=== PATIENT | female | born 1995 | race Caucasian/White ===

== ENCOUNTER → 2019-11-23 13:07 | Outpatient (BNVA) | payer MEDICARE, MEDICAID, SELFPAY | PROVIDERS: PCP Internal Medicine; Visit Provider Hospitalist | DX: J45.50 Severe persistent asthma, uncomplicated (principal); G70.9 Myoneural disorder, unspecified; J30.9 Allergic rhinitis, unspecified; J40 Bronchitis, not specified as acute or chronic; Z79.899 Other long term (current) drug therapy | CPT/HCPCS: 99214 ==

== ENCOUNTER → 2020-03-21 12:39 | Outpatient (BNVA) | payer MEDICARE, MEDICAID, SELFPAY | PROVIDERS: PCP Internal Medicine; Visit Provider Hospitalist | DX: J45.909 Unspecified asthma, uncomplicated (principal); J45.50 Severe persistent asthma, uncomplicated | CPT/HCPCS: 99212 ==

== ENCOUNTER → 2020-06-21 12:53 | Outpatient (BNVA) | payer MEDICARE, MEDICAID, SELFPAY | PROVIDERS: PCP Internal Medicine; Visit Provider Hospitalist | DX: J30.9 Allergic rhinitis, unspecified (principal); G70.9 Myoneural disorder, unspecified; J45.50 Severe persistent asthma, uncomplicated | CPT/HCPCS: 99212 ==

== ENCOUNTER → 2020-11-18 15:01 | Outpatient (BNVA) | payer MEDICARE, MEDICAID, SELFPAY | PROVIDERS: PCP Internal Medicine; Visit Provider Hospitalist | DX: J30.9 Allergic rhinitis, unspecified (principal); J45.50 Severe persistent asthma, uncomplicated; G70.9 Myoneural disorder, unspecified; J96.00 Acute respiratory failure, unspecified whether with hypoxia or hypercapnia | CPT/HCPCS: 99212 ==

== ENCOUNTER 2020-11-27 10:38 | Outpatient (REF) | payer MEDICARE, MEDICAID, SELFPAY ==
[2020-11-27 11:07] LABS: MANUAL DIFF FLAG NO
[2020-11-27 11:09] LABS: ABG Refer to POC result
[2020-11-27 11:58] LABS: Eosinophils Absolute Auto 0.3 X10*3/uL (0.0-0.4); Eosinophils Percent Auto 4.5 % (0-4); Hematocrit 29.1 % (37-47); Hemoglobin 9.8 g/dl (12.0-16.0); Imm Gran Abs Auto 0.03 X10*3/uL (0.00-0.03); Imm Gran Pct Auto 0.5 % (0.0-0.4); Lymphocytes Absolute Auto 0.9 X10*3/uL (1.2-4.9); Lymphocytes Percent Auto 14.8 % (20-40); Mean Corpuscular HGB Conc 33.7 g/dl (31.0-35.0); Mean Corpuscular Hemoglobin 28.5 pg (27.0-33.0); Mean Corpuscular Volume 84.6 fL (80-98); Monocytes Absolute Auto 0.4 X10*3/uL (0.1-1.2); Monocytes Percent Auto 6.1 % (2-11); Neutrophils Absolute Auto 4.4 X10*3/uL (2.0-8.3); Neutrophils Percent Auto 74.1 % (45-73); Platelet Count 176 X10*3/uL (160-400); Red Blood Count 3.44 X10*6/uL (4.20-5.50); Red Cell Distribution Width 13.9 % (11.0-16.0); White Blood Count 5.9 X10*3/uL (4.8-10.8)
[2020-11-27 12:19] LABS: Anion Gap 12 (12-20); Blood Urea Nitrogen 5 mg/dL (9-16); Calcium 8.8 mg/dL (8.4-10.2); Carbon Dioxide 23 mmol/L (22-29); Chloride 107 mmol/L (96-108); Estimated Glomerular Filt Rate > 60; Glucose Random 81 mg/dL (60-115); Potassium 3.5 mmol/L (3.3-5.1); Sodium 138 mmol/L (135-145)
[2020-11-27 12:25] LABS: D Dimer < 200 NG/ML
[2020-11-27 12:37] LABS: Erythrocyte Sedimentation Rate 28 MM/HR (0-20)
[2020-11-28 07:56] LABS: ABG pCO2 29 mmHg (32-45); ABG pO2 125 mmHg (83-108)
[2020-11-28 07:57] LABS: ABG Base Excess -1.2 mmol/L; ABG HCO3 21 mmol/L (22-26); ABG pH 7.46 (7.35-7.45)
[2020-11-29 23:57] LABS: Anti Nuclear Antibody Pattern Nuclear, Homogeneous; Anti Nuclear Antibody Screen POSITIVE (NEGATIVE); Anti Nuclear Antibody Titer 1:40 titer
== END 2020-11-27 10:39 | disposition home or self-care (01) ==
LOC: HO.LAB 10:38
PROVIDERS: PCP Internal Medicine; Visit Provider Hospitalist
DX: G70.9 Myoneural disorder, unspecified (principal); J96.00 Acute respiratory failure, unspecified whether with hypoxia or hypercapnia; J45.50 Severe persistent asthma, uncomplicated
CPT/HCPCS: 36415; 80048; 82785; 82803; 85025; 85379; 85652; 86003; 86038; 86039

== ENCOUNTER → 2021-01-03 13:06 | Outpatient (BNVA) | payer MEDICAID, SELFPAY | PROVIDERS: PCP Internal Medicine; Visit Provider Hospitalist | DX: J45.50 Severe persistent asthma, uncomplicated (principal); J96.00 Acute respiratory failure, unspecified whether with hypoxia or hypercapnia; G71.09 Other specified muscular dystrophies | CPT/HCPCS: 99212 ==

== ENCOUNTER → 2021-04-08 14:47 | Outpatient (BNVA) | payer MEDICAID, SELFPAY | PROVIDERS: PCP Internal Medicine; Visit Provider Hospitalist | DX: J45.50 Severe persistent asthma, uncomplicated (principal); J30.9 Allergic rhinitis, unspecified; G70.9 Myoneural disorder, unspecified; Z79.899 Other long term (current) drug therapy | CPT/HCPCS: 99212 ==

== ENCOUNTER → 2021-11-24 10:39 | Outpatient (BNVA) | payer MEDICARE, MEDICAID, SELFPAY | PROVIDERS: PCP Internal Medicine; Visit Provider Hospitalist | DX: O99.512 Diseases of the respiratory system complicating pregnancy, second trimester (principal); J45.50 Severe persistent asthma, uncomplicated; J30.9 Allergic rhinitis, unspecified; O99.352 Diseases of the nervous system complicating pregnancy, second trimester; G70.9 Myoneural disorder, unspecified; Z3A.14 14 weeks gestation of pregnancy; Z79.899 Other long term (current) drug therapy | CPT/HCPCS: 94618; 99212 ==

== ENCOUNTER → 2022-01-12 10:47 | Outpatient (BNVA) | payer MEDICARE, MEDICAID, SELFPAY | PROVIDERS: PCP Internal Medicine; Visit Provider Hospitalist | DX: G70.9 Myoneural disorder, unspecified (principal); J30.9 Allergic rhinitis, unspecified; J45.50 Severe persistent asthma, uncomplicated | CPT/HCPCS: 99212 ==

== ENCOUNTER → 2022-03-31 10:58 | Outpatient (BNVA) | payer MEDICARE, MEDICAID, SELFPAY | PROVIDERS: PCP Internal Medicine; Visit Provider Hospitalist | DX: O99.513 Diseases of the respiratory system complicating pregnancy, third trimester (principal); J45.51 Severe persistent asthma with (acute) exacerbation; J40 Bronchitis, not specified as acute or chronic; J30.9 Allergic rhinitis, unspecified; O99.353 Diseases of the nervous system complicating pregnancy, third trimester; G70.9 Myoneural disorder, unspecified; Z3A.32 32 weeks gestation of pregnancy; Z79.899 Other long term (current) drug therapy | CPT/HCPCS: 99212 ==

== ENCOUNTER 2023-03-24 10:00 | Outpatient (AMB) | payer MEDICARE, MEDICAID, SELFPAY ==
--- NOTE | 2023-03-24 10:10 | MHC.OFFVIS ---
Intake Vital Signs 03/24/23 10:11 Height 4 ft 11 in Weight 129 lb 13.636 oz BMI 26.2 Pulse 89 Pulse Source Pulse Oximeter Pulse Oximetry (%) 99 Oxygen Delivery Method Room Air Intake Visit Reasons: asthma Sand [employer] Core Sand Required: No Allergies Morphine Allergy (Severe, Uncoded 03/24/23 10:12) Anaphylaxis Oxycodone Allergy (Severe, Uncoded 03/24/23 10:12) Anaphylaxis PERCOCET Allergy (Severe, Uncoded 03/24/23 10:12) Anaphylaxis Silk Tape Allergy (Severe, Uncoded 03/24/23 10:12) Anaphylaxis Sulfa Drugs Allergy (Severe, Uncoded 03/24/23 10:12) Anaphylaxis Toradol Allergy (Severe, Uncoded 03/24/23 10:12) Anaphylaxis HPI HPI Comments History of Present Illness Details the patient is a 27-year-old woman with known severe persistent asthma, chronic allergic rhinitis and mitochondrial muscular dystrophy. recently she did undergo surgery for her Charcot foot. still having significant discomfort. She did start having worsening cough with productive sputum, greenish in color. She did have some chest discomfort along with it. She denies fevers. Resulting in worsening wheezing. She has been using her flutter valve for exploration of mucus, but, having hard time expectorating. therefore, we had her perform pulmonary function studies her forced vital capacity still within normal limits although her Flovent in demonstrating a significant obstruction during the expiratory phase suggesting a dynamic intrathoracic obstruction. This time she has failed the flutter valve and I will request for a percussion vest. She is going to continue with respiratory therapy in a 2nd course of antibiotics will be sent. I will send her also for chest x-ray prior to the next visit. 11/18/2020 the patient is here for a pulmonary follow-up visit. Apparently the patient is now completing her 2nd trimester of . She does follow up in [place] for her obstetrics therapy due to her muscular dystrophy. The patient has been complaining of increasing dyspnea on exertion. Moderate severity. Also feeling very tired. She had to stop out of her respiratory medications and she feels that is likely related to that. During the visit we had her complete a 6 minutes walk test. She did quickly desaturated down to 86% on room air. She was then placed on 2 L and she improved her oxygen to 100%. So we were able to decrease her down to 1 L maintains a saturation 96% with activity. Explained to her that she needs to keep her pulse ox above 95%. Explained to the patient that with her increase in her abdominal girth pressing on her diaphragms it is hard for her to expand her lungs fully. The patient denies any chest pains or palpitations. She denies any the calf discomfort. Although, she has had some mild lower extremity swelling. Will set up the patient on oxygen. She does have a follow up in [place] next week. I will have her undergo blood work prior to that visit so she can take the results with her. It is likely that the hypoxia has to do more with hypo expansion of her lungs due to her . She denies any significant acute symptoms to suggest other alternatives. That being said it is reasonable for her to discuss with her team in [place] see if any additional testing is warranted after undergoing blood work. 01/03/2021 the patient is here for a pulmonary follow-up visit. Patient is 28 weeks gestation. She denies any significant shortness of breath or cough. She does have the oxygen with her. We did take her off the oxygen and did phone a 6 minutes walk test after 5 minutes of being off the oxygen. The patient maintain a pulse ox of 98% throughout the ambulation. Heart rate did increase to about 130 but overall better than before. I have reassured the patient. we also reviewed her blood work including ABG, D-dimer all were reassuring. No evidence of any a-A gradients. She does have a mild anemia. She will follow-up with her OB team soon. the patient will be starting the singular soon. She was not able to get the budesonide. However, with respiratory status staying stable will hold off on starting the budesonide at this time. If however her symptoms worsen she will call the office so we can send her prescription for it. 04/08/2021 the patient is here for pulmonary follow-up visit. She recently had a beautiful baby girl. She did not have any respiratory complaints during the the liver process. However she did have issues with her blood pressure significant lower extremity edema. She is now better from that. Both in the meantime she has not been using the oxygen. We did go for brief walking oximetry in the patient did not desaturate and therefore no longer needs the oxygen. I will submit an order to discontinue the oxygen from her home. She has been using her respiratory medications. Has not had to use any prednisone which is reassuring. She has not had to use her nebulizer either. Otherwise patient is without any other complaints. 11/24/2021 the patient is here for a pulmonary follow-up visit. recently she found out she was again. She currently at 14 weeks gestation. During her last she did have issues with elevations in her blood pressure suggesting some degree of preeclampsia. Now she is taking a baby aspirin they are monitoring closely. The patient has been on the Symbicort and also Spiriva. She also continues on Zyrtec. He has been having More allergy symptoms. She has been using p.r.n. Benadryl. the patient also complains of dyspnea on exertion. During her last she was on oxygen to maintain a pulse ox above 95%. This time we did do a brief walking oximetry in although heart rate had been elevated to the 120s the patient maintain an adequate oxygenation. I did recommend the patient to get her own pulse oximeter to measure her oxygen also her heart rate. Otherwise the patient is without any other complaints. 01/12/2022 the patient is here for a pulmonary follow-up visit. The patient currently is 18 weeks gestation. She did follow-up with her OBGYN. She does have some evidence of preeclampsia and she was started on labetalol. She continues to take the baby aspirin. Denies any significant shortness of breath. She has been using the Symbicort and Spiriva. They have been affecting beneficial. She having issues with significant nasal congestion. The nasal sprays have not been helpful. She is rinsing with the Neti bottle. Without budesonide x2 weeks to try to help her with her symptoms. During the office visit we did go for brief walking oximetry. Her pulse ox was actually of better around 98-100%. Heart rate continues to be elevated in the 120s. Her dyspnea score was 4/10. 03/31/2022 the patient is here for pulmonary follow-up visit. She is now 32 weeks gestation. Her is going well. She does feel tired. Her blood pressure is better. She still tachycardic when she walks around. She continues on the Symbicort and Spiriva. The patient was exposed to sick contacts. Her daughter developed likely a viral examthem. Now she is developing nasal congestion and productive cough. On examination she does have some expiratory wheezing. At this point is minimal. She will start taking a Z-Fran if the patient is no better if she worsens she can always start some prednisone. During the office visit we did go for brief walking oximetry. Her oxygen significantly better between 98 to 99%. However, heart rate did increase to about 130 with minimal activity. The heart rate does go back to normal when she is resting. She continues on the baby aspirin she is tolerating that well. At this point she is has a plan induction for around 38 weeks gestation. 03/24/2023 the patient is here for a pulmonary follow-up visit. She has been busy with her 2 daughters. The patient has been using her respiratory therapy with partial resolution of symptoms. Unfortunately her Symbicort no longer cover. She has had a tough couple months where she has been developing worsening respiratory complaints upper respiratory illness bronchitis asthma exacerbations in part due to sick contacts without her daughters and other family members. Seems like she does not have any time to recover. She does have some increased chest congestion. She has developing a productive yellow phlegm. Will go ahead and treat her for bronchitis. She does not have any significant wheezing therefore does not need to use prednisone right now. However, if her symptoms worsen I will send some prednisone for her to take. Seems to be dealing well with her muscular dystrophy. She is however losing weight. Can not seem to wait. She is being evaluated for that as well. [facility] Medical History (Updated 03/31/22 @ 22:25 by Guillermo Chand MD) Acute respiratory failure Chronic respiratory failure Chronic allergic rhinitis Neuromuscular disorder Asthma Social History (Updated 11/18/20 @ 15:21 by Lucy Bird Alexus) Patient Tobacco Use Status: Never used Tobacco Review of Systems Const Denies night sweats Eyes Denies itchy eyes ENT Denies change in voice, Denies mouth pain, Reports nasal congestion, Reports nasal discharge, Reports nasal obstruction and Denies tongue swelling Card Denies chest pain, Reports palpitations, Denies dyspnea and Reports dyspnea on exertion Resp Reports chest congestion, Reports cough, Denies dyspnea, Reports dyspnea on exertion and Reports wheezing GI Denies abdominal pain Musc Reports abnormal gait, Reports atrophy, Reports deformity and Reports arthralgias Neuro Reports abnormal gait Psych Denies no additional complaints Endo Reports palpitations Anthony/Lymph Denies easy bleeding and Denies lymphadenopathy Aller/Immun Reports urticaria, Denies itchy eyes, Reports seasonal rhinorrhea, Denies tongue swelling and Reports wheezing Physical Exam Vital Signs: Last Vital Signs Pulse 89 03/24/23 10:11 Pulse Ox 99 03/24/23 10:11 Oxygen Delivery Method Room Air 03/24/23 10:11 BMI result Body Mass Index 26.2 Const General: alert Neck Neck: Yes normal visual inspection, Yes full ROM and Yes no lymphadenopathy Chest Chest palpation & inspection: normal inspection of the chest Resp Auscultation: no rales, no rhonchi, no wheezes and diminished lung sounds Cardio Rate: tachycardic Rhythm: regular rhythm Heart sounds: S1 normal heart sound present and S2 normal heart sound present GI Auscultation: normal bowel sounds Skin General skin exam: rashes and/or lesions noted Assessment & Plan Assessment & Plan (1) Bronchitis: Code(s): J40 - Bronchitis, not specified as acute or chronic Plan: Likely viral syndrome (2) Chronic allergic rhinitis: Code(s): J30.9 - Allergic rhinitis, unspecified (3) Neuromuscular disorder: Comment: Code(s): G70.9 - Myoneural disorder, unspecified (4) Asthma: Code(s): J45.909 - Unspecified asthma, uncomplicated Qualifiers: Asthma severity: severe Asthma persistence: persistent Asthma complication type: with acute exacerbation Qualified Code(s): J45.51 - Severe persistent asthma with (acute) exacerbation Plan Start Augmentin Prednisone if no better CXR if no better continue Zyrtec stopped Symbicort due to insurance start Dulera BID continue Spiriva continue neti bottle nasal rinsing KYREE as needed F/U 3-4 months Orders: Orders XR chest 2V Today J40 - Bronchitis, not specified as acute or chronic Medications: New mometasone-formoterol 200-5 mcg/actuation (Dulera) 2 puffs inhalation Q12H 30 days 13 grams 11RF tiotropium bromide 2.5 mcg/actuation (Spiriva Respimat) 2 puffs inhalation DAILY 30 days 1 ea 11RF prednisone PO daily; Take 2 tabs daily x 5 days, then 1 tablet daily x 5 days 10 days 15 tabs 0RF amoxicillin-pot clavulanate 875-125 mg 1 tab PO BID 10 days 20 tabs 0RF Refilled albuterol sulfate 2.5 mg (3 mL) inhalation Q6H 30 days PRN 180 mL 11RF shortness of breath or wheezing Coding Level of Care Code Est Pt Level 4 (70930) Diagnoses Bronchitis J40 Chronic allergic rhinitis J30.9 Neuromuscular disorder G70.9 Severe persistent asthma with acute exacerbation J45.51 Asthma severity: severe Asthma persistence: persistent Asthma complication type: with acute exacerbation Time Spent (min) 17
[2023-03-24 10:11] VITALS: PULSE 89; O2SAT 99; BMI 26.2
== END 2023-03-24 10:34 | disposition home or self-care (01) ==
PROVIDERS: PCP Internal Medicine; Visit Provider Hospitalist
DX: J40 Bronchitis, not specified as acute or chronic (principal); J30.9 Allergic rhinitis, unspecified; G70.9 Myoneural disorder, unspecified; J45.51 Severe persistent asthma with (acute) exacerbation
CPT/HCPCS: 99214

== ENCOUNTER → 2023-03-24 10:00 | Outpatient (BNVA) | payer MEDICARE, MEDICAID, SELFPAY | PROVIDERS: PCP Internal Medicine; Visit Provider Hospitalist | DX: J45.51 Severe persistent asthma with (acute) exacerbation (principal); J40 Bronchitis, not specified as acute or chronic; J30.9 Allergic rhinitis, unspecified; G70.9 Myoneural disorder, unspecified; Z79.899 Other long term (current) drug therapy | CPT/HCPCS: 99212 ==

== ENCOUNTER 2024-03-14 15:17 | Outpatient (AMB) | payer MEDICARE, MEDICAID, SELFPAY ==
[2024-03-14 15:44] VITALS: BP 108/70; PULSE 74; O2SAT 99; BMI 21.6
--- NOTE | 2024-03-14 15:44 | A.OFFVIS_ITS ---
Vital Signs 03/14/24 15:44 Height 4 ft 11 in Weight 106 lb 14.787 oz BMI 21.6 BP 108/70 Blood Pressure Location Rt brachial Position Sitting Pulse 74 Pulse Source Pulse Oximeter Pulse Oximetry (%) 99 Oxygen Delivery Method Room Air Intake Visit Reasons: Asthma Allergies Latex, Natural Rubber Allergy (Mild, Verified 03/14/24 15:48) Hives Morphine Allergy (Severe, Uncoded 03/14/24 15:47) Anaphylaxis Oxycodone Allergy (Severe, Uncoded 03/14/24 15:47) Anaphylaxis PERCOCET Allergy (Severe, Uncoded 03/14/24 15:47) Anaphylaxis Silk Tape Allergy (Severe, Uncoded 03/14/24 15:47) Anaphylaxis Sulfa Drugs Allergy (Severe, Uncoded 03/14/24 15:47) Anaphylaxis Toradol Allergy (Severe, Uncoded 03/14/24 15:47) Anaphylaxis HPI Comments Details: the patient is a 28-year-old woman with known severe persistent asthma, chronic allergic rhinitis and mitochondrial muscular dystrophy. recently she did undergo surgery for her Charcot foot. still having significant discomfort. She did start having worsening cough with productive sputum, greenish in color. She did have some chest discomfort along with it. She denies fevers. Resulting in worsening wheezing. She has been using her flutter valve for exploration of mucus, but, having hard time expectorating. therefore, we had her perform pulmonary function studies her forced vital capacity still within normal limits although her Flovent in demonstrating a significant obstruction during the expiratory phase suggesting a dynamic intrathoracic obstruction. This time she has failed the flutter valve and I will request for a percussion vest. She is going to continue with respiratory therapy in a 2nd course of antibiotics will be sent. I will send her also for chest x-ray prior to the next visit. 11/18/2020 the patient is here for a pulmonary follow-up visit. Apparently the patient is now completing her 2nd trimester of . She does follow up in [place] for her obstetrics therapy due to her muscular dystrophy. The patient has been complaining of increasing dyspnea on exertion. Moderate severity. Also feeling very tired. She had to stop out of her respiratory medications and she feels that is likely related to that. During the visit we had her complete a 6 minutes walk test. She did quickly desaturated down to 86% on room air. She was then placed on 2 L and she improved her oxygen to 100%. So we were able to decrease her down to 1 L maintains a saturation 96% with activity. Explained to her that she needs to keep her pulse ox above 95%. Explained to the patient that with her increase in her abdominal girth pressing on her diaphragms it is hard for her to expand her lungs fully. The patient denies any chest pains or palpitations. She denies any the calf discomfort. Although, she has had some mild lower extremity swelling. Will set up the patient on oxygen. She does have a follow up in [place] next week. I will have her undergo blood work prior to that visit so she can take the results with her. It is likely that the hypoxia has to do more with hypo expansion of her lungs due to her . She denies any significant acute symptoms to suggest other alternatives. That being said it is reasonable for her to discuss with her team in [place] see if any additional testing is warranted after undergoing blood work. 01/03/2021 the patient is here for a pulmonary follow-up visit. Patient is 28 weeks gestation. She denies any significant shortness of breath or cough. She does have the oxygen with her. We did take her off the oxygen and did phone a 6 minutes walk test after 5 minutes of being off the oxygen. The patient maintain a pulse ox of 98% throughout the ambulation. Heart rate did increase to about 130 but overall better than before. I have reassured the patient. we also reviewed her blood work including ABG, D-dimer all were reassuring. No evidence of any a-A gradients. She does have a mild anemia. She will follow-up with her OB team soon. the patient will be starting the singular soon. She was not able to get the budesonide. However, with respiratory status staying stable will hold off on starting the budesonide at this time. If however her symptoms worsen she will call the office so we can send her prescription for it. 04/08/2021 the patient is here for pulmonary follow-up visit. She recently had a beautiful baby girl. She did not have any respiratory complaints during the the liver process. However she did have issues with her blood pressure significant lower extremity edema. She is now better from that. Both in the meantime she has not been using the oxygen. We did go for brief walking oximetry in the patient did not desaturate and therefore no longer needs the oxygen. I will submit an order to discontinue the oxygen from her home. She has been using her respiratory medications. Has not had to use any prednisone which is reassuring. She has not had to use her nebulizer either. Otherwise patient is without any other complaints. 11/24/2021 the patient is here for a pulmonary follow-up visit. recently she found out she was again. She currently at 14 weeks gestation. During her last she did have issues with elevations in her blood pressure suggesting some degree of preeclampsia. Now she is taking a baby aspirin they are monitoring closely. The patient has been on the Symbicort and also Spiriva. She also continues on Zyrtec. He has been having More allergy symptoms. She has been using p.r.n. Benadryl. the patient also complains of dyspnea on exertion. During her last she was on oxygen to maintain a pulse ox above 95%. This time we did do a brief walking oximetry in although heart rate had been elevated to the 120s the patient maintain an adequate oxygenation. I did recommend the patient to get her own pulse oximeter to measure her oxygen also her heart rate. Otherwise the patient is without any other complaints. 01/12/2022 the patient is here for a pulmonary follow-up visit. The patient currently is 18 weeks gestation. She did follow-up with her OBGYN. She does have some evidence of preeclampsia and she was started on labetalol. She continues to take the baby aspirin. Denies any significant shortness of breath. She has been using the Symbicort and Spiriva. They have been affecting beneficial. She having issues with significant nasal congestion. The nasal sprays have not been helpful. She is rinsing with the Neti bottle. Without budesonide x2 weeks to try to help her with her symptoms. During the office visit we did go for brief walking oximetry. Her pulse ox was actually of better around 98-100%. Heart rate continues to be elevated in the 120s. Her dyspnea score was 4/10. 03/31/2022 the patient is here for pulmonary follow-up visit. She is now 32 weeks gestation. Her is going well. She does feel tired. Her blood pressure is better. She still tachycardic when she walks around. She continues on the Symbicort and Spiriva. The patient was exposed to sick contacts. Her daughter developed likely a viral examthem. Now she is developing nasal congestion and productive cough. On examination she does have some expiratory wheezing. At this point is minimal. She will start taking a Z-Fran if the patient is no better if she worsens she can always start some prednisone. During the office visit we did go for brief walking oximetry. Her oxygen significantly better between 98 to 99%. However, heart rate did increase to ab out 130 with minimal activity. The heart rate does go back to normal when she is resting. She continues on the baby aspirin she is tolerating that well. At this point she is has a plan induction for around 38 weeks gestation. 03/24/2023 the patient is here for a pulmonary follow-up visit. She has been busy with her 2 daughters. The patient has been using her respiratory therapy with partial resolution of symptoms. Unfortunately her Symbicort no longer cover. She has had a tough couple months where she has been developing worsening respiratory complaints upper respiratory illness bronchitis asthma exacerbations in part due to sick contacts without her daughters and other family members. Seems like she does not have any time to recover. She does have some increased chest congestion. She has developing a productive yellow phlegm. Will go ahead and treat her for bronchitis. She does not have any significant wheezing therefore does not need to use prednisone right now. However, if her symptoms worsen I will send some prednisone for her to take. Seems to be dealing well with her muscular dystrophy. She is however losing weight. Can not seem to wait. She is being evaluated for that as well. 03/14/2024 the patient is here for a pulmonary follow-up visit. Overall she is doing okay. She had been sick now several weeks. An afterwards she felt like she can not expand her lungs well. She feels chest tightness. Sometimes she does expectorate specially at nighttime she wakes up short of breath with mucus. Appears to be mostly from the upper airway. May have a component of sinusitis with postnasal drip resulting in the difficulties. 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 The patient also has daytime drowsiness. Her [place] score is elevated 01/15. Will go ahead and request a sleep study at this time specially with her waking up short of breath. Will go ahead and treat her for an asthma exacerbation and sinusitis. When she comes back in a couple months will have her get some pulmonary function studies as well to assess her lung capacity. If she has any issues prior to that she will call for an earlier assessment. [facility] Medical History (Updated 03/14/24 @ 22:15 by Guillermo Chand MD) Acute respiratory failure Chronic respiratory failure Chronic allergic rhinitis Neuromuscular disorder Asthma Social History Patient Tobacco Use Status: Never used Tobacco Review of Systems Const Denies night sweats Eyes Denies itchy eyes ENT Denies change in voice, Denies mouth pain, Reports nasal congestion, Reports nasal discharge, Reports nasal obstruction and Denies tongue swelling Card Denies chest pain, Reports palpitations, Reports dyspnea and Reports dyspnea on exertion Resp Reports chest congestion, Reports cough, Reports dyspnea, Reports dyspnea on exertion and Reports wheezing GI Denies abdominal pain Musc Reports abnormal gait, Reports atrophy, Reports deformity and Reports arthralgias Neuro Reports abnormal gait Psych Denies no additional complaints Endo Reports palpitations Anthony/Lymph Denies easy bleeding and Denies lymphadenopathy Aller/Immun Reports urticaria, Denies itchy eyes, Reports seasonal rhinorrhea, Denies tongue swelling and Reports wheezing Physical Exam Vital Signs: Last Vital Signs Pulse 74 03/14/24 15:44 BP 108/70 03/14/24 15:44 Pulse Ox 99 03/14/24 15:44 Oxygen Delivery Method Room Air 03/14/24 15:44 BMI result Body Mass Index 21.6 Const General: alert Neck Neck: Yes normal visual inspection, Yes full ROM and Yes no lymphadenopathy Chest Chest palpation & inspection: normal inspection of the chest Resp Auscultation: no rales, no rhonchi, no wheezes and diminished lung sounds Cardio Rate: tachycardic Rhythm: regular rhythm Heart sounds: S1 normal heart sound present and S2 normal heart sound present GI Auscultation: normal bowel sounds Skin General skin exam: rashes and/or lesions noted Assessment & Plan Assessment & Plan (1) Chronic allergic rhinitis: Code(s): J30.9 - Allergic rhinitis, unspecified Category: Medical (2) Neuromuscular disorder: Comment: Code(s): G70.9 - Myoneural disorder, unspecified Category: Medical (3) Asthma: Code(s): J45.909 - Unspecified asthma, uncomplicated Category: Medical Qualifiers: Asthma severity: severe Asthma persistence: persistent Asthma c omplication type: with acute exacerbation Qualified Code(s): J45.51 - Severe persistent asthma with (acute) exacerbation (4) Sinusitis: Code(s): J32.9 - Chronic sinusitis, unspecified Category: Medical Qualifiers: Sinusitis location: unspecified location Chronicity: subacute Qualified Code(s): J01.90 - Acute sinusitis, unspecified Plan Start Doxycycline start Medrol pk PFTs continue Zyrtec stop Dulera BID start Breztri BID continue neti bottle nasal rinsing KYREE as needed PFTs with MIPs and MEPs F/U 3 months Orders: Orders PFT pulmonary function test Today G70.9 - Myoneural disorder, unspecified Medications: New [id number] 160-9-4.8 mcg/actuation (Breztri Aerosphere) 2 inhalations inhalation BID 10.7 grams 11RF doxycycline monohydrate 100 mg PO BID 14 days 28 tabs 0RF methylprednisolone (Medrol (Fran)) PO PER PKG DIR 6 days 21 ea 0RF Refilled epinephrine 0.15 mg (0.3 mL) IM ONCE PRN 2 ea 6RF for allergies albuterol sulfate 2.5 mg (3 mL) inhalation Q6H 30 days PRN 360 mL 11RF shortness of breath or wheezing J45.51 - Severe persistent asthma with (acute) exacerbation Coding Level of Care Code Est Pt Level 4 (87820) Complex EM visit Add On G2211 Diagnoses Chronic allergic rhinitis J30.9 Neuromuscular disorder G70.9 Severe persistent asthma with acute exacerbation J45.51 Asthma severity: severe Asthma persistence: persistent Asthma complication type: with acute exacerbation Subacute sinusitis, unspecified location J01.90 Sinusitis location: unspecified location Chronicity: subacute Time Spent (min) 17
== END 2024-03-14 16:09 | disposition home or self-care (01) ==
PROVIDERS: PCP Internal Medicine; Visit Provider Hospitalist
DX: J30.9 Allergic rhinitis, unspecified (principal); G70.9 Myoneural disorder, unspecified; J45.51 Severe persistent asthma with (acute) exacerbation; J01.90 Acute sinusitis, unspecified
CPT/HCPCS: 99214; G2211

== ENCOUNTER → 2024-03-14 15:17 | Outpatient (BNVA) | payer MEDICARE, MEDICAID, SELFPAY | PROVIDERS: PCP Internal Medicine; Visit Provider Hospitalist | DX: J45.51 Severe persistent asthma with (acute) exacerbation (principal); J01.90 Acute sinusitis, unspecified; J30.9 Allergic rhinitis, unspecified; G70.9 Myoneural disorder, unspecified; A52.16 Charcot's arthropathy (tabetic) | CPT/HCPCS: 99212 ==

== ENCOUNTER 2024-04-18 09:17 | Outpatient (AMB) | payer MEDICARE, MEDICAID, SELFPAY ==
--- NOTE | 2024-04-18 09:30 | MHC.OFFVIS ---
Vital Signs 04/18/24 09:31 Height 4 ft 11 in Weight 108 lb 0.424 oz BMI 21.8 BP 106/68 Blood Pressure Location Rt brachial Position Sitting Pulse 71 Pulse Source Pulse Oximeter Pulse Oximetry (%) 100 Oxygen Delivery Method Room Air Intake Visit Reasons: productive cough, congestion Allergies Latex, Natural Rubber Allergy (Mild, Verified 04/18/24 09:34) Hives Morphine Allergy (Severe, Uncoded 04/18/24 09:34) Anaphylaxis Oxycodone Allergy (Severe, Uncoded 04/18/24 09:34) Anaphylaxis PERCOCET Allergy (Severe, Uncoded 04/18/24 09:34) Anaphylaxis Silk Tape Allergy (Severe, Uncoded 04/18/24 09:34) Anaphylaxis Sulfa Drugs Allergy (Severe, Uncoded 04/18/24 09:34) Anaphylaxis Toradol Allergy (Severe, Uncoded 04/18/24 09:34) Anaphylaxis HPI Comments Details: the patient is a 28-year-old woman with known severe persistent asthma, chronic allergic rhinitis and mitochondrial muscular dystrophy. recently she did undergo surgery for her Charcot foot. still having significant discomfort. She did start having worsening cough with productive sputum, greenish in color. She did have some chest discomfort along with it. She denies fevers. Resulting in worsening wheezing. She has been using her flutter valve for exploration of mucus, but, having hard time expectorating. therefore, we had her perform pulmonary function studies her forced vital capacity still within normal limits although her Flovent in demonstrating a significant obstruction during the expiratory phase suggesting a dynamic intrathoracic obstruction. This time she has failed the flutter valve and I will request for a percussion vest. She is going to continue with respiratory therapy in a 2nd course of antibiotics will be sent. I will send her also for chest x-ray prior to the next visit. 11/18/2020 the patient is here for a pulmonary follow-up visit. Apparently the patient is now completing her 2nd trimester of . She does follow up in [place] for her obstetrics therapy due to her muscular dystrophy. The patient has been complaining of increasing dyspnea on exertion. Moderate severity. Also feeling very tired. She had to stop out of her respiratory medications and she feels that is likely related to that. During the visit we had her complete a 6 minutes walk test. She did quickly desaturated down to 86% on room air. She was then placed on 2 L and she improved her oxygen to 100%. So we were able to decrease her down to 1 L maintains a saturation 96% with activity. Explained to her that she needs to keep her pulse ox above 95%. Explained to the patient that with her increase in her abdominal girth pressing on her diaphragms it is hard for her to expand her lungs fully. The patient denies any chest pains or palpitations. She denies any the calf discomfort. Although, she has had some mild lower extremity swelling. Will set up the patient on oxygen. She does have a follow up in [place] next week. I will have her undergo blood work prior to that visit so she can take the results with her. It is likely that the hypoxia has to do more with hypo expansion of her lungs due to her . She denies any significant acute symptoms to suggest other alternatives. That being said it is reasonable for her to discuss with her team in [place] see if any additional testing is warranted after undergoing blood work. 01/03/2021 the patient is here for a pulmonary follow-up visit. Patient is 28 weeks gestation. She denies any significant shortness of breath or cough. She does have the oxygen with her. We did take her off the oxygen and did phone a 6 minutes walk test after 5 minutes of being off the oxygen. The patient maintain a pulse ox of 98% throughout the ambulation. Heart rate did increase to about 130 but overall better than before. I have reassured the patient. we also reviewed her blood work including ABG, D-dimer all were reassuring. No evidence of any a-A gradients. She does have a mild anemia. She will follow-up with her OB team soon. the patient will be starting the singular soon. She was not able to get the budesonide. However, with respiratory status staying stable will hold off on starting the budesonide at this time. If however her symptoms worsen she will call the office so we can send her prescription for it. 04/08/2021 the patient is here for pulmonary follow-up visit. She recently had a beautiful baby girl. She did not have any respiratory complaints during the the liver process. However she did have issues with her blood pressure significant lower extremity edema. She is now better from that. Both in the meantime she has not been using the oxygen. We did go for brief walking oximetry in the patient did not desaturate and therefore no longer needs the oxygen. I will submit an order to discontinue the oxygen from her home. She has been using her respiratory medications. Has not had to use any prednisone which is reassuring. She has not had to use her nebulizer either. Otherwise patient is without any other complaints. 11/24/2021 the patient is here for a pulmonary follow-up visit. recently she found out she was again. She currently at 14 weeks gestation. During her last she did have issues with elevations in her blood pressure suggesting some degree of preeclampsia. Now she is taking a baby aspirin they are monitoring closely. The patient has been on the Symbicort and also Spiriva. She also continues on Zyrtec. He has been having More allergy symptoms. She has been using p.r.n. Benadryl. the patient also complains of dyspnea on exertion. During her last she was on oxygen to maintain a pulse ox above 95%. This time we did do a brief walking oximetry in although heart rate had been elevated to the 120s the patient maintain an adequate oxygenation. I did recommend the patient to get her own pulse oximeter to measure her oxygen also her heart rate. Otherwise the patient is without any other complaints. 01/12/2022 the patient is here for a pulmonary follow-up visit. The patient currently is 18 weeks gestation. She did follow-up with her OBGYN. She does have some evidence of preeclampsia and she was started on labetalol. She continues to take the baby aspirin. Denies any significant shortness of breath. She has been using the Symbicort and Spiriva. They have been affecting beneficial. She having issues with significant nasal congestion. The nasal sprays have not been helpful. She is rinsing with the Neti bottle. Without budesonide x2 weeks to try to help her with her symptoms. During the office visit we did go for brief walking oximetry. Her pulse ox was actually of better around 98-100%. Heart rate continues to be elevated in the 120s. Her dyspnea score was 4/10. 03/31/2022 the patient is here for pulmonary follow-up visit. She is now 32 weeks gestation. Her is going well. She does feel tired. Her blood pressure is better. She still tachycardic when she walks around. She continues on the Symbicort and Spiriva. The patient was exposed to sick contacts. Her daughter developed likely a viral examthem. Now she is developing nasal congestion and productive cough. On examination she does have some expiratory wheezing. At this point is minimal. She will start taking a Z-Fran if the patient is no better if she worsens she can always start some prednisone. During the office visit we did go for brief walking oximetry. Her oxygen significantly better between 98 to 99%. However, heart rate did increase to about 130 with minimal activity. The heart rate does go back to normal when she is resting. She continues on the baby aspirin she is tolerating that well. At this point she is has a plan induction for around 38 weeks gestation. 03/24/2023 the patient is here for a pulmonary follow-up visit. She has been busy with her 2 daughters. The patient has been using her respiratory therapy with partial resolution of symptoms. Unfortunately her Symbicort no longer cover. She has had a tough couple months where she has been developing worsening respiratory complaints upper respiratory illness bronchitis asthma exacerbations in part due to sick contacts without her daughters and other family members. Seems like she does not have any time to recover. She does have some increased chest congestion. She has developing a productive yellow phlegm. Will go ahead and treat her for bronchitis. She does not have any significant wheezing therefore does not need to use prednisone right now. However, if her symptoms worsen I will send some prednisone for her to take. Seems to be dealing well with her muscular dystrophy. She is however losing weight. Can not seem to wait. She is being evaluated for that as well. 03/14/2024 the patient is here for a pulmonary follow-up visit. Overall she is doing okay. She had been sick now several weeks. An afterwards she felt like she can not expand her lungs well. She feels chest tightness. Sometimes she does expectorate specially at nighttime she wakes up short of breath with mucus. Appears to be mostly from the upper airway. May have a component of sinusitis with postnasal drip resulting in the difficulties. 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 The patient also has daytime drowsiness. Her Piedmont score is elevated 01/15. Will go ahead and request a sleep study at this time specially with her waking up short of breath. Will go ahead and treat her for an asthma exacerbation and sinusitis. When she comes back in a couple months will have her get some pulmonary function studies as well to assess her lung capacity. If she has any issues prior to that she will call for an earlier assessment. 04/18/2024 the patient is here for sick visit. Last week she started developing flu-like symptoms with fevers and chills and cough. She went to her primary care doctor swab therefore flu RSV and COVID. Unfortunately the swab has not been available. I did try to look at [facility] but could not find any results are [facility]. The patient now feels like she is getting worse he is getting some substernal chest pain when she coughs. Moderate severity. She feels congested. She sometimes has a croupy cough. Denies any wheezing. She has been seeing a nebulizer and her respiratory medications as prescribed. On exam she is congested with congested cough. [facility] Medical History (Updated 04/18/24 @ 19:21 by Guillermo Chand MD) Acute respiratory failure Chronic respiratory failure Chronic allergic rhinitis Neuromuscular disorder Asthma Social History Patient Tobacco Use Status: Never used Tobacco Review of Systems Const Denies night sweats Eyes Denies itchy eyes ENT Denies change in voice, Denies mouth pain, Reports nasal congestion, Reports nasal discharge, Reports nasal obstruction and Denies tongue swelling Card Denies chest pain, Reports palpitations, Reports dyspnea and Reports dyspnea on exertion Resp Reports chest congestion, Reports cough, Reports dyspnea, Reports dyspnea on exertion and Reports wheezing GI Denies abdominal pain Musc Reports abnormal gait, Reports atrophy, Reports deformity and Reports arthralgias Neuro Reports abnormal gait Psych Denies no additional complaints Endo Reports palpitations Anthony/Lymph Denies easy bleeding and Denies lymphadenopathy Aller/Immun Reports urticaria, Denies itchy eyes, Reports seasonal rhinorrhea, Denies tongue swelling and Reports wheezing Physical Exam Vital Signs: Last Vital Signs Pulse 71 04/18/24 09:31 BP 106/68 04/18/24 09:31 Pulse Ox 100 04/18/24 09:31 Oxygen Delivery Method Room Air 04/18/24 09:31 BMI result Body Mass Index 21.8 Const General: alert Neck Neck: Yes normal visual inspection, Yes full ROM and Yes no lymphadenopathy Chest Chest palpation & inspection: normal inspection of the chest Resp Effort & Inspection: normal respiratory effort Auscultation: no rales, no rhonchi, no wheezes and diminished lung sounds Cardio Rate: tachycardic Rhythm: regular rhythm Heart sounds: S1 normal heart sound present and S2 normal heart sound present GI Auscultation: normal bowel sounds Skin General skin exam: rashes and/or lesions noted Assessment & Plan Assessment & Plan (1) Tracheobronchitis: Code(s): J40 - Bronchitis, not specified as acute or chronic Category: Medical (2) Chronic allergic rhinitis: Code(s): J30.9 - Allergic rhinitis, unspecified Category: Medical (3) Neuromuscular disorder: Comment: Code(s): G70.9 - Myoneural disorder, unspecified Category: Medical (4) Asthma: Code(s): J45.909 - Unspecified asthma, uncomplicated Category: Medical Qualifiers: Asthma severity: severe Asthma persistence: persistent Asthma complication type: with acute exacerbation Qualified Code(s): J45.51 - Severe persistent asthma with (acute) exacerbation Plan Start Zpaxk start Medrol pk start Tessalon pearls as needed PFTs continue Zyrtec start Breztri BID continue neti bottle nasal rinsing KYREE as needed PFTs with MIPs and MEPs F/U 3 months Medications: New benzonatate 200 mg PO BID PRN 60 caps 0RF cough 30 days methylprednisolone (Medrol (Fran)) PO PER PKG DIR 21 ea 0RF 6 days azithromycin 500 mg PO DAILY 5 tabs 0RF 5 days Coding Level of Care Code Est Pt Level 4 (42621) Diagnoses Tracheobronchitis J40 Chronic allergic rhinitis J30.9 Neuromuscular disorder G70.9 Severe persistent asthma with acute exacerbation J45.51 Asthma severity: severe Asthma persistence: persistent Asthma complication type: with acute exacerbation Time Spent (min) 16
[2024-04-18 09:31] VITALS: BP 106/68; PULSE 71; O2SAT 100; BMI 21.8
--- OUTSIDE RECORDS SUMMARY | 2024-04-18 10:12 | XMS_ITS | Encounter Summary ---
Author Organization [facility] Address [address] [place] [address] Care Team Providers Care Mechanical Technician Name Role Phone Mateo Marquez MD Primary Care Provider Encounter Details Date Type Department Care Team (Late st Contact Info) Description 11/06/2014 Scanned Document [facility] Genetics [facility] [address] [place] [address] Mina Dykes MD [address] [place] [phone] Social History Tobacco Use Types Packs/Day Years Used Date Smoking Tobacco: Never Smokeless Tobacco: Never Alcohol Use Standard Drinks/Week Comments Not Asked 0 (1 standard drink = 0.6 oz pur e alcohol) Comments Unknown Sex and Gender Information Value Date Recorded Sex Assigned at Not on file Legal Sex Female 1:02 PM EDT Gender Identity Not on file Sexual Orientation Not on file documented as of this encounter Plan of Treatment Not on file documented as of this encounter Visit Diagnoses Not on filedocumented in this encounter Care Teams Mechanical Technician Relationship Specialty Start Date End Date Mateo Marquez MD [address] [phone] PCP - General Internal Medicine 05/29/14 documented as of this encounter
--- OUTSIDE RECORDS SUMMARY | 2024-04-18 10:12 | XMS_ITS | Encounter Summary ---
Author Organization [facility] Address [address] [place] [address] Care Team Providers Care Automobile Detailer Name Role Phone Mateo Marquez MD Primary Care Provider Encounter Details Date Type Department Care Team (Late st Contact Info) Description 10/24/2014 Scanned Document [facility] Genetics [facility] [address] [place] [address] Mina Dykes MD [address] [place] [phone] Social History Tobacco Use Types Packs/Day Years [...] on filedocumented in this encounter Care Teams Automobile Detailer Relationship Specialty Start Date End Date Mateo Marquez MD [address] [phone] PCP - General Internal Medicine 05/29/14 documented as of this encounter
--- OUTSIDE RECORDS SUMMARY | 2024-04-18 10:12 | XMS_ITS | Data Portability ---
Author Organization [facility] Address [address] [place] [address] Care Team Providers Care Power Press Supervisor Name Role Phone MANFRED PIERRE Primary Care Provider SHELLY NUNEZ OTHER Assessment No assessment recorded. Plan of Treatment Reminders Order Date Submit Date Provider Last Modified By Organization Details Last Modified Time Details Appointments None recorded. Lab None recorded. Referral None recorded. Procedures None recorded. Surgeries None recorded. Imaging None recorded. Medication Orders [facility]inon 60 mg tablet 2023 024 [id number] [address], [place], [phone], 4 09:52:28 Mestinon 60 mg tablet 2023 024 [id number], [address], [place], [phone], 4 09:40:55 Mestinon 60 mg tablet 2022 023 [id number], [address], [place], [phone], 3 13:46:17 Mestinon 60 mg tablet 2022 023 [id number], [address], [place], [phone], 3 10:25:41 magnesium 200 mg (as magnesium oxide) tablet 2021 022 DEBORAH [facility] #[id number], [address], [place], [phone], 14:30:55 Patient TargetsNo targets recorded. Patient Instructions Encounter Date Encounter Id Patient Instructions Last Modified By Organization Details Last Modified Time 01/29/2022 [id number] headache: care instructions ahohler Not available 01/29/2022 14:30:49 Reason for Referral None Reported. Problems Name Problem SNOMED Code Status Onset Date Resolution Date Notes Provider Name and Address Organization Details Recorded Time Disorder of autonomic nervous system 81188165 Active 2017 MARY BLACKWELL MD [address] [place] [address], [phone], [facility] 8 20:11:49 Postural orthostatic tachycardia syndrome 343838381 Active 2017 MARY BLACKWELL MD [address] [place] [address], [phone], [facility] 8 20:11:51 Ferritin level below reference range 431654305 Active 2020 MARY BLACKWELL MD [address] [place] [address], [phone], [facility] 1 18:16:07 Headache 51435554 Active 2021 MARY BLACKWELL MD [address] [place] [address], [phone], [facility] 2 18:40:55 Problem Notes None recorded. Procedures Surgical History Date Name Laterality Status Provider Name and Address Organization Details Recorded Time 8 Revision of ankle joint completed [facility] 07/29/2017 16:00:20 Laparoscopy fundoplasty completed [facility] 07/29/2017 15:59:25 Gstrst open wo constj tube completed [facility] 07/29/2017 15:59:48 Repair of achilles tendon completed [facility] 07/29/2017 16:00:39 Myringotomy laser-assist completed [facility] 07/29/2017 16:01:15 Imaging Results None recorded. Procedure Notes None recorded. Medical Equipment None Reported. Allergies Allergen ID Allergen Name Allergen Category Reaction Reaction Severity Criticality Documentation Date Start Date Code Code System Note Provider Name and Address Organization Details Recorded Time 652665 adhesive environme nt,medica tion Not available Not available Not available 07/28/2017 78275 [address]K [place] [facility] 8 16:17:06 138518 Augmentin medicatio n diarrhea Not available Not available 07/28/2017 79546 2 RxNorm [place] [facility] 8 16:17:23 611294 acetamino phen / oxycodone medicatio n Not available Not available Not available 07/28/2017 77839 3 Rx[facility] [place] [facility] 8 16:17:29 106354 Substance with sulfonami de structure and antibacte rial mechanism of action (substanc e) medicatio n Not available Not available Not available 07/28/20172015 26518 8003 SNOMED [place] [facility] 8 16:18:04 585157 Toradol medicatio n Not available Not available Not available 07/28/2017 43580 RxNorm [place] [facility] 8 16:17:53 552260 oxycodone medicatio n hives severe Not available 10/09/2020 7804 RxNorm Tiffany Trotter [facility] 1 09:22:27 Medications Name Sig Start Date Stop Date Status Note LastModified by Organization Details LastModified Time cyclobenzap rine 10 mg tablet TAKE 1 TABLET BY MOUTH THREE TIMES DAILY FOR 10 DAYS DIRECTED active Not Available Not Available No t Available amoxicillin 500 mg capsule TAKE 1 CAPSULE BY MOUTH TWICE DAILY FOR 10 DAYS 11/29 completed Not Available Not Available Not Available Vitamin B-2 100 mg tablet TAKE 2 TABLETS BY MOUTH FOUR TIMES DAILY DIRECTED active Not Available Not Available No t Available doxycycline hyclate 100 mg capsule TAKE 1 CAPSULE BY MOUTH TWICE DAILY FOR 7 DAYS DIRECTED active Not Available Not Available No t Available ketoconazol e 2 % shampoo APPLY TO THE AFFECTED AREA(S), [place]ATHER, LEAVE IN PLACE FOR 5 MINUTES, AND THEN RINSE OFF WITH WATER BY TOPICAL ROUTE EVERY OTHER DAY active Not Available Not Available No t Available albuterol sulfate 2.5 mg/3 mL (0.083 %) solution for nebulizatio n USE 1 VIAL VIA NEBULIZER EVERY 6 HOURS NEEDED FOR SHORTNESS OF BREATH OR WHEEZING active Not Available Not Available No t Available cetirizine 10 mg tablet TAKE 1 TABLET BY MOUTH TWICE DAILY active Not Available Not Available No t Available azithromyci n 250 mg tablet TAKE 2 TABLETS BY MOUTH FOR 1 DAY THEN TAKE 1 TABLET BY MOUTH DAILY FOR 4 DAYS active Not Available Not Available No t Available tizanidine 4 mg tablet Take 1 tablet as needed by oral route. 04/20 completed Not Available Not Available Not Available fluconazole 150 mg tablet TAKE 1 TABLET (150 MG) BY ORAL ROUTE ONCE 11/29 completed Not Available Not Available Not Available tretinoin 0.025 % topical cream APPLY SMALL AMOUNT TOPICALLY TO THE AFFECTED AREA 2 TO 3 TIMES A WEEK. MAY INCREASE TO EVERY NIGHT TOLERATED active Not Available Not Available No t Available epinephrine (Jr) 0.15 mg/0.3 mL injection,a uto-injecto r USE DIRECTED NEEDED FOR ALLERGIC REACTION active Not Available Not Available No t Available fluconazole 200 mg tablet TAKE 1 TABLET BY MOUTH EVERY DAY 11/29 completed Not Available Not Available Not Available meloxicam 15 mg tablet TAKE 1 TABLET BY MOUTH EVERY DAY DIRECTED 11/29 completed Not Available Not Available Not Available sucralfate 1 gram tablet Take 1 tablet 3 times a day by oral route. 04/20 completed Not Available Not Available Not Available Nasal Moisturizin g 0.65 % spray aerosol Take 1 spray as needed by nasal route. 04/20 completed Not Available Not Available Not Available ondansetron HCl 4 mg tablet Take 1 tablet every day by oral route. 11/29 completed Not Available Not Available Not Available prednisone 20 mg tablet TAKE 2 TABLETS BY MOUTH EVERY DAY FOR 5 DAYS DIRECTED active Not Available Not Available No t Available prochlorper azine maleate 10 mg tablet TAKE 1 TABLET BY MOUTH TWICE DAILY NEEDED active Not Available Not Available No t Available levocarniti ne 330 mg tablet Take 1 tablet 3 times a day by oral route. active Not Available Not Available No t Available aspirin 81 mg tablet,freedom yed release TAKE 1 TABLET BY MOUTH EVERY MORNING 11/29 completed Not Available Not Available Not Available doxycycline monohydrate 100 mg tablet TAKE 1 TABLET BY MOUTH TWICE DAILY FOR 14 DAYS 11/29 completed Not Available Not Available Not Available amoxicillin 500 mg tablet TAKE 1 TABLET BY MOUTH EVERY 8 HOURS active Not Available Not Available No t Available ondansetron 8 mg disintegrat ing tablet DISSOLVE 1 TABLET ON THE TONGUE TWICE DAILY FOR 15 DAYS active Not Available Not Available No t Available baclofen 20 mg tablet 1 tablet 3-4 times daily as needed 10/09 completed Not Available Not Available Not Available adapalene 0.1 % topical cream APPLY TO THE AFFECTED AREA(S) BY TOPICAL ROUTE ONCE DAILY AT BEDTIME 04/20 completed Not Available Not Available Not Available cyproheptad ine 4 mg tablet Take 1 tablet twice a day by oral route. 10/09 completed Not Available Not Available Not Available prazosin 5 mg capsule Take 1 capsule every day by oral route at bedtime. 04/20 completed Not Available Not Available Not Available hydromorpho ne 2 mg tablet TAKE 1 TABLET BY MOUTH TWICE DAILY FOR 5 DAYS NEEDED active Not Available Not Available No t Available famotidine 20 mg tablet TAKE 1 TABLET BY MOUTH TWICE DAILY active Not Available Not Available No t Available clindamycin 1 % topical gel APPLY A THIN LAYER TO THE AFFECTED AREA(S) BY TOPICAL ROUTEface , daily 04/16 completed Not Available Not Available Not Available triamcinolo ne acetonide 0.025 % topical cream APPLY A THIN LAYER TO THE AFFECTED AREA(S) BY TOPICAL ROUTE PRN 04/20 completed Not Available Not Available Not Available trazodone 100 mg tablet Take 2 tablets every day by oral route at bedtime. 10/09 completed Not Available Not Available Not Available baclofen 10 mg tablet TAKE 1 TABLET BY MOUTH EVERY NIGHT AT BEDTIME AND ALSO TWICE DAILY NEEDED active Not Available Not Available No t Available levothyroxi ne 50 mcg tablet TAKE 1 TABLET BY MOUTH EVERY DAY DIRECTED active Not Available Not Available No t Available pantoprazol e 40 mg tablet,freedom yed release TAKE 1 TABLET BY MOUTH TWICE DAILY TAKE 30 MINUTES BEFORE EATING active Not Available Not Available No t Available biotin 10,000 mcg capsule Take 1 capsule every day by oral route. active Not Available Not Available No t Available erythromyci n 5 mg/gram (0.5 %) eye ointment active Not Available Not Available Not Available butalbital 50 mg-acetamin ophen 325 mg-caffeine 40 mg-codeine 30 mg cap Take 1 capsule as needed by oral route. 10/09 completed Not Available Not Available Not Available pyridostigm ine bromide 60 mg tablet take 1/2 tab at 8am, 12 noon, 4 pm, and 8 PM active Not Available Not Available No t Available triamcinolo ne acetonide 55 mcg nasal spray aerosol SPRAY ONCE IN EACH NOSTRIL TWICE DAILY active Not Available Not Available No t Available polymyxin B sulfate 10,000 unit-trimet hoprim 1 mg/mL eye drops active Not Available Not Available Not Available budesonide 0.25 mg/2 mL suspension for nebulizatio n Inhale 2 mL twice a day by nebulizat ion route. 10/09 completed Not Available Not Available Not Available folic acid 1 mg tablet Take 1 tablet every day by oral route. active Not Available Not Available No t Available hydrocortis one 2.5 % topical cream APPLY A THIN LAYER TO THE AFFECTED AREA(S) BY TOPICAL ROUTE PRN active Not Available Not Available No t Available montelukast 10 mg tablet Take 1 tablet every day by oral route. 04/20 completed Not Available Not Available Not Available hydroxyzine HCl 25 mg tablet active Not Available Not Available Not Available diclofenac sodium 50 mg tablet,freedom yed release TAKE 1 TABLET BY MOUTH TWICE DAILY FOR 3 DAYS THEN TWICE DAILY NEEDED 11/29 completed Not Available Not Available Not Available ibuprofen 600 mg tablet active Not Available Not Available Not Available zolpidem 10 mg tablet Take 1 tablet every day by oral route. 04/20 completed Not Available Not Available Not Available labetalol 100 mg tablet 11/29 completed Not Available Not Available Not Available norethindro ne (contracept germain) 0.35 mg tablet active Not Available Not Available No t Available celecoxib 100 mg capsule TAKE 1 CAPSULE BY MOUTH TWICE DAILY FOR 15 DAYS 11/29 completed Not Available Not Available Not Available ondansetron 4 mg disintegrat ing tablet 11/29 completed Not Available Not Available Not Available fluticasone propionate 50 mcg/actuati on nasal spray,suspe nsion [place] 1 spray every day by intranasa l route. 04/20 completed Not Available Not Available Not Available clotrimazol e 1 % topical cream APPLY TOPICALLY TO THE AFFECTED AREA TWICE DAILY FOR 2 WEEKS active Not Available Not Available No t Available betamethaso ne dipropionat e 0.05 % lotion APPLY TOPICALLY TO THE AFFECTED AREA 3 TIMES A WEEK active Not Available Not Available No t Available sodium fluoride 1.1 % dental gel active Not Available Not Available N ot Available doxepin 150 mg capsule Take 1 capsule every day by oral route. 10/09 completed Not Available Not Available Not Available mometasone 0.1 % topical cream APPLY THIN LAYER TOPICALLY TO THE AFFECTED AREA EVERY DAY active Not Available Not Available No t Available amoxicillin 875 mg-potassiu m clavulanate 125 mg tablet TAKE 1 TABLET BY MOUTH TWICE DAILY FOR 10 DAYS 11/29 completed Not Available Not Available Not Available Ventolin HFA 90 mcg/actuati on aerosol inhaler INHALE 2 PUFFS BY MOUTH EVERY 6 HOURS NEEDED FOR WHEEZING active Not Available Not Available No t Available tobramycin 0.3 %-dexametha sone 0.1 % eye drops,suspe nsion SHAKE LIQUID AND INSTILL 1 DROP IN RIGHT EYE THREE TIMES DAILY. SHAKE WELL BEFORE EACH USE active Not Available Not Available No t Available neomycin-po lymyxin-hyd rocort 3.5 mg-10,000 unit/mL-1 % ear drops,susp APPLY ONE TO TWO DROPS TWICE DAILY TO AFFECTED AREA active Not Available Not Available No t Available clindamycin 1 % lotion APPLY TOPICALLY TO THE AFFECTED AREA TWICE DAILY active Not Available Not Available No t Available magnesium 200 mg tablet TAKE 1 TABLET BY MOUTH DAILY active Not Available Not Available No t Available azithromyci n 500 mg tablet TAKE 1 TABLET BY MOUTH DAILY FOR 5 DAYS 11/29 completed Not Available Not Available Not Available cyclobenzap rine 5 mg tablet 11/29 completed Not Available Not Available Not Available bupropion HCl XL 300 mg 24 hr tablet, extended release Take 1 tablet every day by oral route. 10/09 completed Not Available Not Available Not Available fluocinolon e 0.01 % scalp oil and shower cap APPLY TOPICALLY TO THE SCALP 2 TO 3 TIMES A WEEK active Not Available Not Available No t Available tretinoin 0.1% topical cream 10/09 completed Not Available Not Available Not Available multivitami n 1 tab QD active Not Available Not Available Not Available PediaSure QD active Not Available Not Winifred ilable Not Available Brovana 15 mcg/2 mL solution for nebulizatio n Inhale 2 mL twice a day by inhalatio n route. 10/09 completed Not Available Not Available Not Available Symbicort 160 mcg-4.5 mcg/actuati on HFA aerosol inhaler INHALE 2 PUFFS BY MOUTH TWICE DAILY active Not Available Not Available No t Available calcium 500 mg (as carbonate)- vitamin D3 3.125 mcg (125 unit) tablet Take 1 tablet twice a day by oral route. active Not Available Not Available No t Available CoQ-10 100 mg capsule Take 1 capsule every day by oral route. active Not Available Not Available No t Available diclofenac 1 % topical gel active Not Available Not Available Not Available cetirizine 10 mg capsule Take 1 capsule every day by oral route. 11/18 completed Not Available Not Available Not Available Dulera 200 mcg-5 mcg/actuati on HFA aerosol inhaler INHALE 2 PUFFS BY MOUTH EVERY 12 HOURS active Not Available Not Available No t Available Stimulant Laxative Plus 8.6 mg-50 mg tablet TAKE 2 TABLETS BY MOUTH EVERY MORNING active Not Available Not Available No t Available Spiriva Respimat 2.5 mcg/actuati on solution for inhalation INHALE 2 PUFFS BY MOUTH DAILY active Not Available Not Available No t Available Boost 0.04 gram-1 kcal/mL oral liquid Take 237 mL twice a day by oral route. 04/20 completed Not Available Not Available Not Available Vienva 0.1 mg-20 mcg tablet TAKE 1 TABLET BY MOUTH EVERY DAY 11/29 completed Not Available Not Available Not Available Restasis MultiDose 0.05 % eye drops INSTILL 1 DROP IN BOTH EYES TWICE DAILY active Not Available Not Available No t Available magnesium 200 mg (as magnesium oxide) tablet take one a day 2021 active Not Available Not Available Not Avai lable Motegrity 2 mg tablet TAKE 1 TABLET BY MOUTH every other day active Not Available Not Available No t Available Tremfya 100 mg/mL subcutaneou s auto-inject or active Not Available Not Available Not Available Skyrizi 150 mg/mL subcutaneou s pen injector 11/29 completed Not Available Not Available Not Available Vitals None Recorded Social History Question Answer Notes LastModified by Organizat ion Details LastModified Time Tobacco Smoking Status [facility] [place] [facility] 15:57:15 What Is Your Occupation? Graduated From [employer], Waiting To Take License Exam Information not available 07/29/2017 Live Alone Or With Others? With Others With Mom Information not available 07/29/2017 What Was The Date Of Your Most Recent Tobacco Screening? 12/30/2017 Information not available 09/14/2018 Sex: Unknown Functional Status None recorded. Mental Status None recorded. Family History Relationship Description Onset Age of this Age Resolved Age Notes LastModified by Organization Details LastModified Time Mother Diabetes mellitus Not available 2017 17:04:32 Father Diabetes mellitus Not available 2017 17:04:32 Maternal Grandmother Osteoporosis Not available 07/28/2017 17:04:48 Maternal Grandmother Essential hypertension Not available 08/2017 15:55:31 Maternal Grandmother Coronary arterioscler osis Not available 2017 15:55:46 Paternal Grandmother Asthma Not available 07/29 15:55:18 Maternal Aunt Asthma Not avai lable 07/29/2017 15:55:18 Maternal Aunt Roney thyroiditis Not available 08/2017 15:56:55 Brother Asthma Not available 07/29/2017 15:55:18 Brother Roney thyroiditis Not available 08/2017 15:56:55 Medical History Condition Response hypothyroidism Y hypertension Y seizure disorder Y migraines Y anxiety disorder Y asthma Y GI problems depression Y Gynecological HistoryNo gynecological history recorded. Obstetrics History GPAL:G 0 P 0 0 0 0 Past Encounters Encounter ID Performer Location Encounter Start Date Encounter Closed Date Diagnosis/Indication Diagnosis SNOMED-CT Code Diagnosis ICD10 Code Diagnosis Note [id number] MARY BLACKWELL MD [facility] [address] [place] [address] 07/28/2017 09:10:56 07/28/2017 10:25:38 Disorder of autonomic nervous system 95006886 G90.9 Ms. Kruger is a 21 yo female with cerebral palsy here today for f/u for autonomic dysfunctio n. Since her last visit, her BP readings have been low and she has had an increase of syncope episodes. The plan is to increase mestinon in order to help with syncope. She is to follow up with [facility] via phone call or portal. Postural o rthostatic tachycardia syndrome 647908867 I95.1 [id number] MARY BLACKWELL MD [facility] [address] [place] [address] 12/29/2017 09:17:40 12/29/2017 10:53:10 Disorder of autonomic nervous system 12528873 G90.9 Ms. Kruger is a 22 yo female with cerebral palsy here today for f/u for autonomic dysfunctio n. Recently she has been doing better on current current dose of mestinon. Will increase 8 am dose to 1.5 tablet in am. Greater than 50% of this 45 min face to face visit spent discussing autonomic dysfunctio n and POTS and coordinati ng care. Postural o rthostatic tachycardia syndrome 459897289 I95.1 POTS and autonomic dysfunctio n are severe and she is on medication for this. [id number] MARY BLACKWELL MD [facility] [address] [place] [address] 10/13/2018 10:09:27 10/13/2018 10:59:49 Disorder of autonomic nervous system 21688311 G90.9 This is a 23 yo female with cerebral palsy here today for f/u for autonomic dysfunctio n, after an increase in mestinon dosing to 1.5 tablets of 60mg TID. She is currently improved but sill having exacerbati ons in the mornings where her BP drops to 80/40, she feels faint and has lapses in memory. Autonomic Dysfunctio n- Increased Hydration. Drink 20 ounces or more before 10am. Use of electrolyt e tablets, NUUN was discussed. Increase mestinon 60mg tablets to ? 2 tablets in the morning, 1.5 in the afternoon, and 1.5 in the evening.Po stural orthostati c tachycardi a syndrome- Currently on medication (mestinon to control this)Invit jie roman Discussed getting High-risk physician. Advised that can remain on mestinon Greater than 50% of this 45 min face to face visit spent discussing autonomic dysfunctio n and POTS and coordinati ng care. [id number] MARY BLACKWELL MD [facility] [address] [place] [address] 04/20/2019 08:30:14 04/20/2019 09:40:46 Disorder of autonomic nervous system 92591763 G90.9 This is a 23-year-ol d female with cerebral palsy here for follow-up of her autonomic dysfunctio n. Despite increasing her AM mestinon dose to 2 60mg tablets, she continues to have episodes where she passes out and wakes up at 5pm. This is likely due to a combinatio n of her autonomic dysfunctio n and poor sleep. She is open to adding an additional dose of mestinon in the evening in hopes of improving her sleep and symptoms. Additional ly, she is looking to pursue IVF. Discussed risks and benefits of . Okay to continue mestinon if she becomes . - Add another 1.5 tablets of Mestinon at 8pm (continue to take 2 tablets at 8am, 1.5 at noon, 1.5 at 4) - Track blood pressures for one week with changes in mestinon and follow-up in 1 week - Continue to take Trazadone 200mg before bed. - Continue to increase hydration, 20 oz or more before 10AM. Continue to take electrolyt e tablets - Contact ophthalmol ogist for dry eye evaluation - Letter written for IVF- discussed and need for MFM and genetics involvemen t. Greater than 50% of this 45 min face to face visit spent discussing autonomic dysfunctio n and POTS and coordinati ng care. [id number] MARY BLACKWELL MD [facility] [address] [place] [address] 10/19/2019 09:29:18 10/19/2019 11:00:21 Disorder of autonomic nervous system 92721783 G90.9 24 yo female with a hx of disorder of ANS coming in for f/u. She thinks that her 8pm dose of mestinon has been helping her symptoms and reports she now only passes out 1-2 times/wk. She has found a physician for IVF and requires that we send over her medical records. Syncope events have been reduced, but still present and nights and am time is most problemati c. Plan: ? Increase evening Mestinon dose to 1.5 tablets at 8pm. Continue taking 2 tabs at 8am, 1.5 at 12 pm, and 1.5 at 4pm. o Call for f/u in two weeks to report whether her bowel symptoms and fainting improve with this new dose. Greater than 50% of this 45 min face to face visit spent discussing autonomic dysfunctio n and POTS and coordinati ng care. [id number] MARY BLACKWELL MD [facility] [address] [place] [address] 10/09/2020 08:57:10 10/09/2020 10:40:06 Disorder of autonomic nervous system 72106973 G90.9 24 yo female with a hx of disorder of ANS coming in for f/u. PT is 4 mo . syncope well controlled since last visit. Plan:Take blood pressure at morning and when feeling unwell. Call to adjust meds for >130 or <100.Cont increased fluidObtai n ferritinCo ntinue current mestinon regimen F/U in 4 mo Greater than 50% of this 45 min face to face visit spent discussing autonomic dysfunctio n and POTS and coordinati ng care. Ferritin l evel below reference range [id number] R77.8 Evaluate for ferritin level. [id number] MARY BLACKWELL MD [facility] [address] [place] [address] 01/21/2021 09:23:35 01/21/2021 11:54:10 Disorder of autonomic nervous system 03903480 G90.9 25 yo female with a hx of disorder of ANS coming in for f/u. BP, HR doing well. Autonomic symptoms well controlled . PT is 7 mo . no syncope since last visit. Plan:Take blood pressure at morning and when feeling unwell. Call to adjust meds for >130 or <100.Cont increased fluid and elyte intakeCont inue current mestinon regimenF/U in Feb 2021. This visit was conducted using two-way, real-time telehealth phone conference as video was not available. The patient was in her home. Physician, Dr. Blackwell was located at [place]. Instructio ns were reviewed with the patient and verbal consent was obtained. I informed the patient that she can see me in person if needed. She is of moderate risk. Greater than 50% of this 45 min face to face visit spent discussing autonomic dysfunctio n and POTS and coordinati ng care. Ferritin l evel below reference range [id number] R77.8 Ferritin 18 (in the lower range of normal) [id number] MARY BLACKWELL MD [facility] NEUROLOGY OFFICE [address] [place] [address] 03/12/2021 15:24:28 03/14/2021 10:17:24 Disorder of autonomic nervous system [id number] G90.9 This is a 25-year-ol d female with hx cerebral palsy and dysautonom ia presents with signs of preeclamps ia including elevate BP with associated headache and LE edema. Her dysautonom ia is likely contributi ng, warranting another reduction in her Mestinon until her induction. ABG? s autonomic symptoms are moderately managed given her . Given her impending induction, heart rate and blood pressure parameters as well as fluid support were discussed for safe childbirth . ABG is followed by a maternal health specialist (Dr. Jean-Paul Montoya MD p: [phone]) who will monitor her labor and ABG reports they have discussed the necessity of avoiding prolonged labor. Will follow up with ABG post-partu m to discuss increasing her Mestinon. Plan:Reduc e Mestinon 60mg to ? ? ? tab at 8am and ? ? ? tab at 4pmStart wearing compressio ns stockings dailyDrThuan Blackwell to call Dr. Jean-Paul Montoya MD p: [phone] to discuss safety parameters - Maintain blood systolic blood pressure between 140-100- Maintain HR below 120- Avoid prolonged laborFollo w up 1 week to discuss increasing Mestinon dose This visit was conducted using two-way, real-time telehealth phone conference as video was not available. The patient was in her home. Physician, Dr. Blackwell was located at [place]. Instructio ns were reviewed with the patient and verbal consent was obtained. I informed the patient that she can see me in person if needed. She is of moderate risk. Greater than 50% of this 45 min face to face visit spent discussing autonomic dysfunctio n and POTS and coordinati ng care. Postural o rthostatic tachycardia syndrome [id number] I95.1 POTS and autonomic dysfunctio n are severe and she is on medication for this. [id number] MARY BLACKWELL MD [facility] SPECIAL[facility] [address] [place] [phone] 07/17/2021 09:20:22 07/18/2021 13:24:20 Disorder of autonomic nervous system [id number] G90.9 This is a 25-year-ol d female with hx cerebral palsy and dysautonom ia doing well after delivery. Autonomic is stable. Plan:Juanita nue Mestinon 60mg to 1 tablet by mouth three times a day.Contin ue with wearing compressio ns stockings dailyConti nue with VitaminsCo ntinue with hydration and electrolyt esCall with any questionsF ollow up appointmen t in 3 months, either in person or telehealth This visit was conducted using two-way, real-time telehealth phone conference as video was not available. The patient was in her home. Physician, Dr. Blackwell was located at [place]. Instructio ns were reviewed with the patient and verbal consent was obtained. I informed the patient that she can see me in person if needed. She is of moderate risk. Greater than 50% of this 45 min face to face visit spent discussing autonomic dysfunctio n and POTS and coordinati ng care. [id number] MARY BLACKWELL MD [facility] [address] [place] [phone] 01/29/2022 13:56:21 01/30/2022 09:15:11 Headache [id number] R51.9 Assessment & Plan 26 year old female with a medical history including cerebral palsy and dysautonom ia presenting for follow-up appointmen t due to increased BP readings, palpitatio ns, and headaches. Physical examinatio n was unremarkab le. Given the increased frequency of her headaches we recommend she consider taking 200mg of magnesium daily to mitigate symptoms and decrease the use of Tylenol. We discussed continuing with Mestinon 60mg to 0.5 tablet by mouth three times a day and monitoring BP. We will follow-up in 2 months and make medication adjustment s if BP remains unstable. Plan: - Take 200mg magnesium daily to alleviate headaches - Continue taking Mestinon 60mg to 0.5 tablet by mouth three times a day - If blood pressure remains unstable then we will consider adjusting the medication . - Follow-up in 2 months This visit was conducted using two-way, real-time telehealth video conference . The patient was in her home. Physician, Dr. Blackwell was located at [place]. Instructio ns were reviewed with the patient and verbal consent was obtained. I informed the patient that she can see me in person if needed. She is of moderate risk. Greater than 50% of this 30 min was spent discussing autonomic dysfunctio n and coordinati ng care. [id number] MARY BLACKWELL MD [facility] [address] [phone] 04/16/2022 10:02:47 04/17/2022 06:57:17 Disorder of autonomic nervous system [id number] G90.9 This is a 26-year-ol d female with hx cerebral palsy and dysautonom ia. BP has been high.Plan: Decrease Mestinon 60mg to 1/2 tablet in the am due to HTNCall back in one week to update on BPConsider propranolo l reinitiati on if neededCont inue with VitaminsCo ntinue with hydration and electrolyt esCall with any questionsF ollow up appointmen t in 2 months, either in person or telehealth This visit was conducted using two-way, real-time telehealth video conference . The patient was in her home. Physician, Dr. Blackwell was located at [place]. Instructio ns were reviewed with the patient and verbal consent was obtained. I informed the patient that she can see me in person if needed. She is of moderate risk. Greater than 50% of this 45 min face to face visit spent discussing autonomic dysfunctio n and POTS and coordinati ng care. [id number] MARY BLACKWELL MD [facility] NEUROLOGY [address] [place] [address] 05/28/2022 13:03:14 06/01/2022 16:37:02 Disorder of autonomic nervous system [id number] G90.9 This is a 26-year-ol d female with hx cerebral palsy and dysautonom ia. BP has been high. Delivered 2 weeks ago. BP was high and she was dilated. BP were high initially and have settled down. Other daughter is 1 year old Walking is going well though her ankles are a bit weak. She is also having weakness in the pelvic floor. She will start pelvic floor exercises 6 weeks postpardum . She has GI difficulit es and had been receiving botox injections to the stomach by Dr. Amaya at [facility] who is now leaving. She needs to find a new GI specialist .Plan:Cont inue Mestinon 60mg to 1/2 tablet TIDCall back in one week to update on BPConsider propranolo l reinitiati on if neededCont inue with VitaminsCo ntinue with hydration and electrolyt esCall with any questionsF ollow up appointmen t in 2 months, either in person or telehealth This visit was conducted using two-way, real-time telehealth video conference . The patient was in her home. Physician, Dr. Blackwell was located at [place]. Instructjose juan ns were reviewed with the patient and verbal consent was obtained. I informed the patient that she can see me in person if needed. She is of moderate risk. Greater than 50% of this 45 min face to face visit spent discussing autonomic dysfunctio n and POTS and coordinati ng care. [id number] MARY BLACKWELL MD [facility] NEUROLOGY OFFICE [address] [place] [address] 07/20/2023 08:49:52 07/20/2023 10:33:54 Disorder of autonomic nervous system [id number] G90.9 Ms. Slick Santiagotany ) is a 26-year-ol d female with PMH cerebral palsy and dysautonom ia who presents for 1-year f/u. Patient had 1 syncopal episode and 1-2 near-synco pe episodes and continuing to have some variable BP readings. This is accompanie d by daria t nausea as well. We can try adding an additional dose of Mestinon 30 mg at 8 PM to manage afternoon/ evening nausea and upon waking in the morning. Patient is in agreement with this plan. She is also advised to have small regular, easily digestible meals and snacks as tolerated, particular ly for breakfast and for an evening snack (as her dinnertime is very early). Recent new diagnosis of psoriasis is in line with dysautonom ia picture. Patient also undergoing work up for RA in the Right shoulder with PCP, possible ortho referral. Patient is awaiting further work-up and possible surgery with her GI team at [facility]. We will wait to hear what her plans are.Plan:- Increase Mestinon 30 mg to QID (8:30 AM / noon / 4 PM / 8 PM)- Call back in one week to update on BP- Consider propranolo l re-initiat ion, if needed- Continue with vitamins- Continue with hydration and electrolyt es- Eat small, easily digestible snacks and meals. Try to eat a small breakfast and an evening snack.- Follow up in 4 months, either in person or telehealth This visit was conducted using two-way, audio-only , real-time telehealth conference via telephone. The patient was in her home. Physician, Dr. Blackwell was located at [place]. Pierre lee were reviewed with the patient and verbal consent was obtained. I informed the patient that she can see me in person if needed. She is of moderate risk. Greater than 50% of this 45 min face to face visit spent discussing autonomic dysfunctio n and POTS and coordinati ng care. [id number] MARY BLACKWELL MD [facility] [address] [place] [address] 11/30/2023 09:22:08 11/30/2023 11:23:25 Disorder of autonomic nervous system [id number] G90.9 Ms. Kruger ( Jessica ) is a 28-year-ol d female with PMH cerebral palsy and dysautonom ia who presents for followup. From an autonomic standpoint she is doing well. BP and HR have been stable on the Mestinon 1/2 QID. She is having issues with vomiting and will have a stomach stretching procedure. Plan:- Continue Mestinon 30 mg to QID (8:30 AM / noon / 4 PM / 8 PM)- Continue with vitamins and all other supplement s- Continue with hydration and electrolyt es- Eat small, easily digestible snacks and meals. Try to eat a small breakfast and an evening snack.- Follow up in 6 months, either in person or telehealth This visit was conducted using two-way, audio-only , real-time telehealth conference via telephone. The patient was in her home. Physician, Dr. Blackwell was located at [place]. Instructio ns were reviewed with the patient and verbal consent was obtained. I informed the patient that she can see me in person if needed. She is of moderate risk. Greater than 50% of this 35 min face to face visit spent discussing autonomic dysfunctio n and POTS and coordinati ng care. Health Concerns Section Related Observation LastModified by Organization Detai ls LastModified Time None Recorded Concern Status LastModified by Organization Details LastModified Time None Recorded Advance Directives Directive None Recorded Payers Encounter Date Sequence Insurance Name Policy Number Policy Ayoub Covered Member ID Ayoub Member ID Guarantor Name 01/29/2022 2 [place] [facility] Alza B Slick [id number] Gray Kruger 04/16/2022 1 [place] [employer] Alza B Slick [id number] Alza Jessica Kruger 04/16/2022 2 [place] [facility] Alza B Slick [id number] Alza Jessica Kruger 05/28/2022 1 [place] [employer] Alza B Slick [id number] Dorotheaa Jessica Kruger 05/28/2022 2 [place] [facility] Alza B Slick [id number] Alza Jessica Kruger 07/20/2023 1 [place] [employer] Alza B Slick [id number] Alza Jessica Kruger 07/20/2023 2 [place] [facility] Gary Kruger [id number] Gary Kruger 11/30/2023 1 [place] [facility] Gary Kruger [id number] Gary Kruger 11/30/2023 2 [place] [facility] Gary Kruger [id number] Gary Kruger Notes Date Note Type Note Provider Name and Address Organization Details Recorded Time 01/29/2022 text/html Since last visit : patient reports that symptoms of elevated BP and headaches have persisted without change from prior visit. At home she records BP has been stable averaging at 120/70 however at her recent PCP appointment it peaked to 140/80. The patient states at home she notes a spike in BP while walking for extended periods of time with associated palpitations and headaches. The headaches occur 2-3 times per week with associated phonophobia and photophobia. She is managing with Tylenol 3-4 times a week. She states they are occurring more frequently than with her previous last year. She notes caffeine to be a trigger but they also occur sporadically. She is 24 weeks and complains of lower leg swelling, back pain, numbness and tingling of the hands, nausea, and constipation that is managed with senna.Recently, the patient stopped taking labetalol as it was decreasing her SBP into the 90? s . She continues to take Mestinon 0.5 tablet 3 times a day and uses compression stockings.The patient expected due date is scheduled as April 22 2022, she has an US every 4 weeks, all of which have been normal.Active Meds:1. Mestinon 60mg to 0.5 tablet by mouth three times a day. MARY BLACKWELL MD [address] [place] [address], [phone], [facility] - [facility] 01/29/2022 18:44:02 04/16/2022 text/html She is having mi ld contractions at 35 weeks of . Blood pressure has been elevated recently.She continues to take Mestinon 0.5 tablet 3 times a day and uses compression stockings.The patient expected due date is scheduled as April 22 2022, she has an US every 4 weeks, all of which have been normal.She is on multiple supplements from the OBGYN. MARY BLACKWELL MD [address] [place] [address], [phone], [facility] 04/16/2022 20:12:24 05/28/2022 text/html This is a 26-year-old female with hx cerebral palsy and dysautonomia. BP has been high. Delivered 2 weeks ago. BP was high and she was dilated. BP were high initially and have settled down. Other daughter is 1 year old Walking is going well though her ankles are a bit weak. She is also having weakness in the pelvic floor. She will start pelvic floor exercises 6 weeks postpardum. She has GI difficulites and had been receiving botox injections to the stomach by Dr. Amaya at [facility] who is now leaving. She needs to find a new GI specialist. MARY BLACKWELL MD [address] [place] [address], [phone], [facility] 05/30/2022 22:08:46 07/20/2023 text/html Ms. Slick Dyer [facility] ) is a 26-year-old female with PMH cerebral palsy and dysautonomia who presents for 1-year f/u. Ms. Kruger was unable to use MS Teams for audiovisual support. This visit was conducted via telephone (audio-only). At last visit, she was having issues with high BP readings but this was surrounding childbirth and the immediate period. Today, she reports that she is experiencing low BP in the morning. Currently taking Mestinon 30 mg TID at 8:30 AM, noon, and 4 PM. She takes BP BID daily (AM and PM). AM BP readings are usually 100s/70s-80s. She feels sleepy if SBP is lower than 99. In the past year, she has had 1 syncopal episode 2 months ago.. She was sitting on the couch at home and passed out for ~ 30 minutes. She was conscious ( could hear everything ) but could not move her body (reports this is typical for her syncopal episodes). Her mother was home with her at the time and monitored her BP, which was around 88/42. She had near-passing out episodes 1-2 times in the past year as well. All of these episodes occurred in the morning. PM BPs are higher, usually 120s-130s/80s. Ms. Kruger can only drink about 2-3 bottles of water daily due to low GI motility. Drinking more water would cause nausea and leave her unable to eat food. Takes 1 packet of powdered electrolytes daily. Ms. Kruger continues to be followed at [facility] GI by Dr. Amaya for now (may leave the practice in the near future). Botox injections to the stomach has not been helpful, last injection was 01/2023. She is being evaluated for a surgical option to increase GI motility/absorptio n, also at [facility]. Continuing to have significant GI issues, particularly with nausea and vomiting. She has not been able to tolerate red meat, greasy food, and, lately, pasta, which is new. She drinks Pediasure to supplement her nutrition. Ensure makes her nauseous. Dinner usually at 4 PM. Has been losing weight, now at 100 lb. 24-hour food recall:B - skipped d/t nauseaL - saladD (4 PM) - chicken tacossnack - garcia smoothie around 7 PM Ms. Kruger was diagnosed with psoriasis in her scalp and started Tremfya in 12/2022. Been helpful. She also started having severe Right shoulder pain. She has been taking a muscle relaxant (rx by PCP) for the past 2 weeks and the plan is to refer to ortho if no improvement. X-ray showed that the cartilage is breaking down. PCP questioned RA. She has used crutches since age 2. Since the shoulder pain, she has been using a cane on her Left side. Social: Ms. Kruger is currently not working. Has 2 daughters - Ami, 2, and Jayne, 1. Her mother helps with childcare. MARY BLACKWELL MD [address] [place] [address], [phone], [facility] - [facility] 07/20/2023 22:00:14 11/30/2023 text/html Ms. Kruger ( Jessica ) is a 28-year-old female with PMH cerebral palsy and dysautonomia who presents for f/u. Ms. Kruger was unable to use MS Teams for audiovisual support. This visit was conducted via telephone (audio-only). She had an increase in neck and shoulder pain. She is back on 10 mg baclofen once a day. She will need a stomach stretching procedure- Dr. Amaya is a GI at [facility]. She is being referred to [facility] Dr. Keith. She is vomiting 1-2 times a week. Autonomic issues are stable. MARY BLACKWELL MD [address] [place] [address], [phone], [facility] 11/30/2023 10:04:32 OBGyn Episode No OBEpisode recorded.
--- OUTSIDE RECORDS SUMMARY | 2024-04-18 10:12 | XMS_ITS | Continuity of Care Document ---
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 Ons et: 08/06/2022 Asthma Nadia Townsend M.D. Ons et: 08/06/2022 Migraine Nadia Townsend M.D. Ons et: 08/06/2022 Essential hypertension Fredy Faith Onset: 08/06/2022 History of deep vein thrombosis Nadia Stapleton M.D. Onset: 08/06/2022 Candidiasis Nadia Townsend M.D. Ons et: 08/06/2022 Concussion with no loss of consciousness Nadia Townsend M.D. Onset: 08/06/2022 Gastroesophageal reflux disease Nadia Stapleton M.D. Onset: 08/06/2022 Depressive disorder Nadia Townsend M.D. Onset: 08/06/2022 Insomnia Nadia Townsend M.D. Ons et: 08/06/2022 H/O: pulmonary embolus Fredy Faith Onset: 02/01/2023 Chronic constipation Mara aFith Onset: 02/01/2023 Social History Type Date Description Comments Sex Unknown Lives With Mother Lives With Daughter 2 Work Status Disabled Tobacco Use Start: Unknown Never Smoked Cigarettes Smoking Status Reviewed: 02/01/23 Never Smoked Cigaret jennifer ETOH Use Occasionally consumes alcoho l Allergies and adverse reactions Active Allergies Criticality Reaction Severity Comments Date Latex Unable to assess criticality 02/01/2023 Sulfamethoxazole Unable to assess criticality 02/01/2023 Toradol Unable to assess criticality 02/01/2023 Oxycodone Unable to assess criticality 02/01/2023 Medications Active Medications SIG Qnty Indications Ordering Provider Date Triamcinolone Kzeaugpfi22hsn/Act Aerosol [place] Once In Each Nostril Twice Daily Jose Boone MD Ceronjdcw9ye Tablets Take 1 Tablet By Mouth Twice Daily Unknown Ventolin SSI967(90Base) mcg/Act Aerosol Inhale 2 Puffs By Mouth Every 6 Hours as Needed For Shortness Of Breath/Wheezing Guillermo Chand Pantoprazole Bgainp84nf Tablets DR Take 1 Tablet By Mouth Twice Daily Take 30 Minutes Before Eating Unknown Levothyroxine Jtvzjr32wmr Tablets Take 1 Tablet By Mouth Every Day as Directed Nadia Townsend M.D. Cetirizine ANT54cv Tablets 1 by mouth twice a day Guillermo Chand Wqupiccbi398-1.5mcg/Ac t Aerosol Inhale 2 Puffs By Mouth Twice Daily Guillermo Chand Eesvfac706hu/ml Solution Pen-Inject every 8 weeks Unknown 000 Spiriva Qtqwhjmupa61bnq Capsules inhale 1 puffs by mouth once daily Unknown Vitamin B650mg Tablets 1 bid Unknown Vitamin B-225mg Tablets Unknown L-Aixmxvdls042zc Capsules tid Unknown Ivmxdbljlx32ja Tablets 1 by mouth twice daily as needed Nadia Townsend M.D. Tums Extra Strength 978751za Chewtabs 1 by mouth every day Unknown Sgjdihvt91bh Tablets 1/2 tid Unknown Vital Signs Date Vital Result Comment 02/01/2023 8:43am BP Systolic 106 mmHg BP Diastolic 68 mmHg Heart Rate 82 /min Height 59 inches 4'11 Weight 103.38 lb BMI (Body Mass Index) 20.9 kg/m2 Results Test Acquired Date Facility Test Result H/L Range N ote Laboratory test finding 02/01/2023 [facility] Reference Lab TSH With Reflex To FT4 2.30 uIU/mL (0.4-4.2) Procedures Date Code Description Status 02/01/2023 78995 Collection Of Venous Blood B y Venipuncture Completed Medical Devices Description No Information Available Encounters Type Date Location Provider Dx Diagnosis Office Visit 02/01/2023 8:30a Main Office Nadia Townsend M.D. E03.9 Hypothyroidism, unspecified Assessments Date Code Description Provider 02/01/2023 E03.9 Hypothyroidism, unspecified Nadia Townsend M.D. Plan of Treatment No Information Available Functional Status Description No Information Available Mental Status Description No Information Available Referrals Description No Information Available
--- OUTSIDE RECORDS SUMMARY | 2024-04-18 10:12 | XMS_ITS | Clinical Summary ---
Author Organization [facility] Address [address] [place] [address] Care Team Providers Care Sprinkling System Installer Name Role Phone Mateo Marquez MD Primary Care Provider Surgical History Surgery Date Site/Laterality Comments OTHER SURGICAL HISTORY 2001 PROCEDURE: GASTROSTOMY TUBE W/RING EACH OTHER SURGICAL HISTORY 05/2007 PROCEDURE: NJ LENGTHENING HAMSTRING TENDON MULTIPLE BILATERAL APPENDECTOMY 04/01 PROCEDURE: NJ APPENDEC INDICATED PURPOSE OTH MAJOR PX NOT SPX; COMMENT: with ovarian cystectomy OVARIAN CYST REMOVAL 04/01 PROCEDURE: [place] OVARIAN CYSTECTOMY UNI/BI; COMMENT: right ovarian cystectomy OTHER SURGICAL HISTORY 2005 PROCEDURE: BACLOFEN (MP); COMMENT: removed 2006 Medical History Medical History Date Comments 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 (HCC) Gastroesophageal reflux DX:Gastr oesophageal reflux Asthma 02/05/2017 DX:Asthma Autonomic dysfunction 02/05/2017 DX:Autonom ic dysfunction Acne 02/05/2017 DX:Acne Hypertension 02/05/2017 DX:Hypertension Psoriasis 02/05/2017 DX:Psoriasis Hypothyroidism 02/05/2017 DX:Hypothyroidis m Allergic rhinitis 05/25/2017 DX:Allergic rh initis Migraine headache 10/08/2014 DX:Migraine he adache Restrictive lung disease 06/02/2016 DX:Rest rictive lung disease 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 Family History Medical History Relation Name Comments Thyroid disease Brother 1 Diabetes Maternal Grandfather Glaucoma Maternal Grandfather Hypertension Maternal Grandfather Arthritis Maternal Grandmother Diabetes Maternal Grandmother Glaucoma Maternal Grandmother Hyperlipidemia Maternal Grandmother Hypertension Maternal Grandmother Allergies Mother Arthritis Mother Thyroid disease Mother Relation Name Status Comments Brother 1 Brother 2 Alive Father Alive Maternal Grandfather Alive Maternal Grandmother Alive Mother Alive Paternal Grandfather Alive Paternal Grandmother Social History Tobacco Use Types Packs/Day Years Used Date Smoking Tobacco: Never Smokeless Tobacco: Never Alcohol Use Standard Drinks/Week Comments Yes 0 (1 standard drink = 0.6 oz pur e alcohol) Comments Unknown Sex and Gender Information Value Date Recorded Sex Assigned at Not on file Legal Sex Female 6:15 PM EST Gender Identity Not on file Sexual Orientation Not on file Obstetrics History Plan of Treatment Health Maintenance Due Date Last Done Comments DTaP,Tdap,and Td Vaccines (1 - Tdap) 2013 Hepatitis B Vaccines (1 of 3 - 19+ 3-dose series) 2013 Cervical Cancer Screening: P ap Smear 08/25/2015 COVID-19 Vaccine (2023-2 5 season) 2023 Influenza Vaccine (#1) 2023 01/29/2009 HIB Vaccines Aged Out No longer eligi ble based on patient's age to complete this topic HPV Vaccines Aged Out No longer eligi ble based on patient's age to complete this topic Hepatitis A Vaccines Aged Out No long er eligible based on patient's age to complete this topic IPV Vaccines Aged Out No longer eligi ble based on patient's age to complete this topic MMR Vaccines Aged Out No longer eligi ble based on patient's age to complete this topic Meningococcal ACWY Vaccine Aged Out N o longer eligible based on patient's age to complete this topic Meningococcal B Vacine Aged Out No lo nger eligible based on patient's age to complete this topic Pneumococcal Vaccine: Pediat rics (0 to 5 Years) and At-Risk Patients (6 to 64 Years) Aged Out No longer eligi ble based on patient's age to complete this topic RSV Immunization Patients Un douglas 20 months Aged Out No longer eligible b ased on patient's age to complete this topic Varicella Vaccines Aged Out No longer eligible based on patient's age to complete this topic Advance Directives Documents on File Type Date Recorded Patient Occupational Health Coordinator Expl anation Health Care Decision (hx) 10/17/2014 AD MARIE DIRECTIVE Health Care Decision (hx) 10/17/2014 AD MARIE DIRECTIVE Care Teams Sprinkling System Installer Relationship Specialty Start Date End Date Mateo Marquez MD [address] [facility] - General 04/22/00
--- OUTSIDE RECORDS SUMMARY | 2024-04-18 10:13 | XMS_ITS | Encounter Summary ---
Author Organization [facility] Address [address] [place] [address] Care Team Providers Care Quarter Lining Smoother Name Role Phone Mateo Marquez MD Primary Care Provider Encounter Details Date Type Department Care Team (Late st Contact Info) Description 05/30/[address] [facility] [address] [place] [address] Mina Dykes MD [address] [place] [id number] Social History Tobacco Use Types Packs/Day Years Used Date Smoking Tobacco: Never Assessed Comments Unknown Sex and Gender Information Value Date Recorded Sex Assigned at Not on file Legal Sex Female 1:02 PM EDT Gender Identity Not on file Sexual Orientation Not on file documented as of this encounter Plan of Treatment Not on file documented as of this encounter Visit Diagnoses Not on filedocumented in this encounter Care Teams Quarter Lining Smoother Relationship Specialty Start Date End Date Mateo Marquez MD [address] [phone] PCP - General Internal Medicine 05/29/14 documented as of this encounter
--- OUTSIDE RECORDS SUMMARY | 2024-04-18 10:13 | XMS_ITS | Data Portability ---
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 She reports some relief of sx with use of zofran. She last vomited this morning. She has been pushing oral fluids, ice chips, and gatoraid to help prevent dehydration. She reports that when she called her Can Coverer today he stated for her to call for an abd xray and IVF to help with sx. Pt reports 8/10 pain and distention. She reports her LMP stadrted on 12/05 and denies posibility of and states that her current sx are consistent with her prior flares. Exam: Pt is A/Ox3, non-toxic appearing, VSS with mild tachycardia noted, HRR, resp reg and unlabored on RA, lungs CTA bilat, abd is soft, mildly distended, with mild diffuse tenderness on palpation. +BSx4. DDx considered, but not limited to: Autonomic dysfuntion: sx likely related to flare of pt's underlying health conditions SBO: possible given no BM in 10 days and reports of n/v : low risk given pt is actively on her menses at time of visit and sx more consistent with GI complaint given no BM in 10 days. Appy: unlikely given no RLQ tenderness, rebound tenderness, or peritoneal s/s. Work up/Results: BMP: WNL Plan/Discussion: Pt given 500ml of IVF to help with sx of mild dehydration given recent hx of n/v. Abd xray ordered and pt advised to report to the ER immediately if sx worsen. Pt has close follow up outpatient and sx are consistent with chronic health conditions. Pt is stable at time of visit and deemed saft to stay home at time of DH visit. Pt tolerated IVF well. Patients PCP contacted and updated on patient status. Patient verbalized understanding of discharge instructions and when to follow up with PCP/911/ED as needed. Patient in agreement with current plan and treatment. In order to obtain further information and compare any laboratory results/values, I have accessed old patient records. This information was pertinent in my medical decision making today. [email or web address] Not available 12/07/2019 14:32:14 01/01/2020 01/01/2020 Overview/History : 24 yo female with a PMHx significant for asthma, mitochondrial disease, autonomic dysfunction, intestine/colon motility disorder and spasticity of lower extremities who is being seen for abdominal pain, N/V. She has a history of abdominal pain and dehydration and SBO. She reports she has had poor appetite and only able to drink a few sips of water today. She tolerated very little food yesterday. She had a hard BM 2 days ago. She is voiding however urine is concentrated. She denies any urinary symptoms. Exam: Vitals: T-98.4 HR- 86 RR- 16 BP- 110/64 SpO2- 96% RA A+O x 3, well nourished in NAD Heart sounds normal, no edema LSCTA, no difficulty breathing Abd soft, flat, +BS, tender mid epigastric area, no masses or rebound tenderness No rashes DDx considered, but not limited to: SBO, acute abdomen, diverticulitis, cholecystitis, dehydration, electrolyte derangements considered. 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 She has a known intestinal motility disorder so this is likely a flare up of that. She is non toxic appearing and hemodynamically stable. Abd is soft/flat, no masses, or rebound tenderness. mid epigastric area tender to deep palpation. Work up/Results: Chem 8 Plan/Discussion: Discussed with patient that she is dehydrated from N/V- IV placed and 1L NS administered. Zofran 4mg IV given x 1. Pt has a script for SL Zofran already from her GI MD. We checked a Chem 8 her K+ was 3.3, did not want to give oral potassium replacement given N/V. She has been encouraged later today if she is feeling better to try to have bland foods, bananas, toast, Gatorade and pedialyte. If she is still unable to eat or drink she should go to ED for IVF and K+ replacement and possible imaging. Did not think an abdominal Xray was needed given she had one recently and reports her symptoms are consistent with her motility disorder. She is in agreement with this plan. In order to obtain further information and compare any laboratory results/values, I have accessed previous medical records. This information was pertinent in my medical decision making today. The patient is advised to make an appt with PCP in 3-5 days to discuss ongoing symptoms/ further management. The patient is also advised to go to the ED immediately for any worsening symptoms. The patient understood and agreed with this plan. The patient was emailed discharge instructions and all questions were answered prior to DH team departure. Lab Results BMP + ionized calcium, serum or plasma glu: 165mg/dL ref: 70-105 BUN: 10mg/dL ref: 8-26 crea: 0.4mg/dL ref: 0.6-1.3 Na: 136mmol/L ref: 138-146 K: 3.3mmol/L ref: 3.5-4.9 cL: 104mmol/L ref: 98-109 TCO2: 22mmol/L ref: 24-29 angap: 15mmol/L ref: 10-20 ica: 1.17mmol/L ref: 1.12-1.32 HCT: 38%pcv ref: 38-51 Hb: 12.9g/dL ref: 12-17 [email or web address] Not available 01/01/2020 14:40:01 01/07/2020 01/07/2020 Lab Results BMP + ionized calcium, serum or plasma glu: 84mg/dL ref: 70-105 BUN: 10mg/dL ref: 8-26 crea: 0.6mg/dL ref: 0.6-1.3 Na: 138mmol/L ref: 138-146 K: 3.5mmol/L ref: 3.5-4.9 cL: 103mmol/L ref: 98-109 TCO2: 29mmol/L ref: 24-29 angap: 11mmol/L ref: 10-20 ica: 1.34mmol/L ref: 1.12-1.32 HCT: 34%pcv ref: 38-51 Hb: 11.6g/dL ref: 12-17 Time On Scene with Patient: 01:55:28 Time On Scene with Patient: :55:28 [email or web address] Not available 01/11/2020 04:04:01 09/25/2020 09/25/2020 Overview/History : 25yo female who is known to [facility] & this provider with a PMHx of mitochondrial disease, autonomic dysfunction, intestine/colon motility disorder, spasticity of lower extremities, SBO, asthma and she is 14 weeks being seen for N/V. She reports she ate [employer] on 09/23/20 and became sick following, denies any abdominal pain. Reports N/V. Had 1 episode of diarrhea, no blood in stool. No cramping or contractions. She contacted her OB who requested she received IVF and called in a prescription for Zofran for her. She denies any dizziness or falls. No vaginal discharge. She is now tolerating Gatorade and crackers. Exam: Pt is alert, non toxic appearing in NAD Moist mucous membranes Normal heart sounds, RRR Lungs are clear Abdomen soft, round, nontender,+normoacti ve BS No edema DDx considered, but not limited to: Gastroenteritis likely r/t food borne illness- miguel also was sick after eating [employer] induced nausea- hyperemesis gravidarum less likely- 14 weeks , her morning sickness resolved around 10 weeks Appendicitis, diverticulitis, acute abdomen considered- no pain, abd soft Norovirus possible Work up/Results: Physical Exam 500cc NS Bolus Plan/Discussion: Discussed with patient we will give a bolus of IVF and 1 dose of Zofran. OB has already called in script for more Zofran. Advised to continue sips of Gatorade, crackers and advance diet as tolerated. If at any point she develops abdominal cramping or bleeding be seen at [facility] and notify OB. The patient is advised to make an appt with OB to discuss ongoing symptoms/ further management. The patient is also advised to go to the ED immediately for any worsening symptoms. The patient understood and agreed with this plan. The patient was given discharge instructions and all questions were answered prior to DH team departure. In order to obtain further information and compare any laboratory results/values, I have accessed old patient records. This information was pertinent in my medical decision making today. Time On Scene with Patient: 00:55:35 [email or web address] Not available 09/25/2020 12:00:07 01/27/2021 01/27/2021 Proper Personal Protective Equipment (PPE), including gloves, eye protection and masks were donned and doffed appropriately and all equipment cleaned using approved technique with germicidal disposable wipes prior to and after care of this patient according to [facility]'s infection prevention protocols. Overview/History: 25 yo female with one day N/V without abd pain is seen for IVF recommended by her OB @ [facility]. Exam: abd exam with normal bowel sounds, no tenderness. pt nontoxic appearing, NAD, with low grade temp @ 100.4 and HR @ 98 DDx considered, but not limited to: hyperemesis gravidarum viral gastroenteritis Plan/Discussion: -zofran 4mg ODT given on scenen -prescribed zofran odt at local pharmacy -unable to place IV for IVF after multiple attempts -pt nontoxic appearing NAD -tolerated zofran odt with relief prior to wrapping up with the patient -pt is touching base with [facility] BUSINESS DEVELOPMENT PROFESSIONAL tomorrow AM -she will call 911 if abd pain begins, vomiting becomes intractable In order to obtain further information and compare any laboratory results/values, I have accessed . This information was pertinent in my medical decision making today. Not available 01/27/2021 18:20:53 Plan of Treatment Reminders Order Date Submit Date Provider Last Modified By Organization Details Last Modified Time Details Appointments None recorded. Lab BMP + ionized calcium, serum or plasma 2019 [email or web address] [facility] (Centralized Electronic Ordering - All Locations), Patient Can Go To The Location Of Their Choice, [id number] 18:22:04 BMP + ionized calcium, serum or plasma 11/09/ 2020 11/09/2 020 DEBORAH Spr [facility], [address] [facility], [place], [address], 0 13:45:25 BMP + ionized calcium, serum or plasma 2019 020 DEBORAH Spr [facility], [address], [place], [address], 0 10:40:46 Referral None recorded. Procedures None recorded. Surgeries None recorded. Imaging XR, abdomen, 3 or more views 2019 020 [email or web address] [facility] ([facility] [employer] [address], [place], [address], 0 13:24:11 Medication Orders Zofran ODT 4 mg disintegr ating tablet 2020 021 Not available 2 09:54:46 Zofran ODT 4 mg disintegr ating tablet 2020 021 [facility], [address], [place], [id number], 1 18:01:51 Zofran ODT 4 mg disintegr ating tablet 2020 021 [place] [address] [facility] #30209, [address] [place], [place], [id number], 1 11:42:09 sodium chloride 0.9 % intraveno us solution 2020 021 [place] [address] [facility] #90985, [address], [place], [id number], 1 11:42:11 sodium chloride 0.9 % intraveno us solution 2019 020 [email or web address] Not available 1 20:15:08 Zofran 2 mg/mL intraveno us solution 2019 020 [email or web address] Not available 1 20:15:08 Zofran 2 mg/mL intraveno us solution 2019 020 [email or web address] [facility] #56480, [address], [place], [id number], 0 13:43:43 sodium chloride 0.9 % intraveno us solution 2019 020 [facility] #06653, [address] [place], [place], [id number], 0 13:43:44 sodium chloride 0.9 % intraveno us solution 2019 020 [email or web address] [facility] #25351, [address], [place], [id number], 0 14:07:33 Patient TargetsNo targets recorded. Patient Instructions Encounter Date Encounter Id Patient Instructions Last Modified By Organization Details Last Modified Time 12/07/2019 [id number] Acute Nausea and Vomiting/Diarrhea Given your abd pain and lack of a bowel movement in 10 days we have ordered an xray of your abdomin for further evaluation in collaboration with your Can Coverer at [facility]. We gave you some IV Fluids to help with your nausea and vomiting. If your symptoms worsen please report to the ER immediately. In order to meet our goal of providing quality urgent care in your home, your [facility] provider has ordered the following exam to be completed. Abdominal Xray The company we have partnered with that will be completing the exam listed above is: [employer] While you wait comfortably at home, you can expect a [employer] technologist to call you 30-45 minutes prior to arrival. Should you need to make special scheduling arrangements please call the number listed above and ask to speak with a [employer] dispatcher. For your convenience, you can also request your technologist? s Estimated Time of Arrival (ETA) by calling the number listed above. Once requested, a [employer] dispatcher will call you back to let you know what time frame to expect the technologist to arrive within. Once your x-ray is completed, a radiologist will evaluate the test and interpret the results. Once the final report is received by [facility] from the reading radiologist a [facility] provider will call with the results. BASIC INFORMATION Acute nausea and vomiting often start suddenly, worsen quickly, and last a few hours to 24 hours. Nausea and vomiting most often occur together, although they can occur alone. Cases of acute nausea and vomiting are often from gastrointestinal viruses such as norovirus, rotavirus and influenza. Less often it can be caused by toxins released from food that ? g oes bad? as well as some types of bacteria and parasites. Diarrhea can also occur. Your nurse practitioner will conduct a careful history to help determine if you have one of the more serious causes. The cause of your nausea and vomiting may be unknown. INSTRUCTIONS Medicines: 1) Anti-nausea: You may have been given a prescription for an anti nausea medicine such as Zofran, Phenergan or Compazine. These can be used every 6-8 hours to help prevent nausea and vomiting. They can make you sleepy, so do not drive after taking them. Be sure to read all of the drug information from the pharmacy. 2) Tylenol: Low grade fever is common with acute nausea and vomiting. You may use Tylenol, per the recommended dosing on the label, to help control fever. If you have liver disease, do not use Tylenol. Ask your QUALITY ASSURANCE SPECIALIST how to address fever if you are concerned about Tylenol use. 3) Anti-diarrheal medicines: These are available [id number], but in some cases are not recommended and can even worsen some cases of intestinal problems. Ask your QUALITY ASSURANCE SPECIALIST if you should use them. In children under 12, the only anti-diarrheal that should be considered is Kaopectate. Diet: 1) For the next 12-24 hours, take clear liquids only. No dairy and no caffeinated beverages. After you have not vomited for a complete hour (either with or without the help of the anti-nausea medicine), begin by taking one tablespoon of clear liquid every 15 minutes for one hour. If you are able to tolerate this, you may increase the amount to 2 tablespoons every hour for the next 2 hours. 2) Clear liquids such as gatorade, pedialyte or broth are recommended because of the electrolytes and sugars that will help replenish the losses from vomiting and diarrhea. 3) If you are able to tolerate clear liquids as instructed above, you may begin to take a bland diet. Plain pasta/noodles or toast are suggestions. If you have had diarrhea, bananas, rice and applesauce are suggested as these can help make the stools more solid. Avoid greasy, fatty or fried foods FOLLOW UP You should make an appointment to see your primary care provider within 24 hours or sooner for worsening condition as described below. If you do not have a primary care doctor, you should follow up with one of the PCP suggestions from [facility]. SEEK CARE IMMEDIATELY IF: 1) You are still unable to tolerate any oral intake after 24 hours 2) You have blood in your vomit or stool 3) You develop severe abdominal pain that does not go away after an episode of vomiting or diarrhea 4) You have severe dizziness, heart palpitations or are passing out 5) You develop severe muscle cramps or weakness 6) You have not made urine in over 24 hours If you develop any new or worsening symptoms and need after hours care, please go to nearest ER and/or call 911. If you have additional concerns or develop a change in your condition between 8am-10pm, please call [facility] at [phone] to help navigate your care. Thank you for your visit with [facility] today. You were seen today for abdominal pain, nausea, vomiting and/or diarrhea. Medications may have been administered and lab tests may have been performed. At this time, we do not see evidence of a serious surgical or infectious cause of your symptoms. However, lab tests and an evaluation cannot always exclude appendicitis or other serious causes of abdominal pain. Please see a medical professional in 12-24 hours to be re-examined. Seek immediate medical attention for increased pain, vomiting or fever. If you develop any new or worsening symptoms and need after hours care, please go to nearest ER and/or call 911. If you have additional concerns or develop a change in your condition between 8am-10pm, please call [facility] at [phone] to help navigate your care. [email or web address] Not available 12/07/2019 14:06:45 01/01/2020 [id number] Thank you for yo ur visit with [facility] today. You were seen today for abdominal pain, nausea, vomiting and/or diarrhea. IV Zofran and IVF was administered and your electrolytes were checked showing a low Potassium of 3.3. Try to drink gatorade, pedialyte and have a bland diet of bananas toast etc until you are feeling better. At this time, we do not see evidence of a serious infectious cause of your symptoms. However, lab tests and an evaluation cannot always exclude other serious causes of abdominal pain. Please see a medical professional in 12-24 hours to be re-examined. Seek immediate medical attention for increased pain, vomiting or fever. If you develop any new or worsening symptoms and need after hours care, please go to nearest ER and/or call 911. If you have additional concerns or develop a change in your condition between 8am-10pm, please call [facility] at [phone] to help navigate your care. Thank you for your visit with [facility] today. We cannot always find the exact cause of your symptoms during your initial visit. Please follow up with your primary care provider or specialist as needed to be rechecked or seek medical attention if your symptoms do not go away or get worse. If you develop any new or worsening symptoms and need after hours care, please go to nearest ER and/or call 911. If you have additional concerns or develop a change in your condition between 8am-10pm, please call [facility] at [phone] to help navigate your care. [email or web address] Not available 01/01/2020 13:50:43 01/07/2020 [id number] infusion, normal saline* [email or web address] Not available 01/10/2020 08:00:29 You were seen to day for acute vomiting and dehydration. Your Istat lab drawn today was not concerning. You received a 500 cc bolus of normal saline to help hydrate you as well as 4 mg of Zofran IV to assist you in keeping fluids down. Please follow up with your PCP tomorrow. We will attach this visit to your primary care provider for follow up as well. Acute Nausea and Vomiting/Diarrhea BASIC INFORMATION Acute nausea and vomiting often start suddenly, worsen quickly, and last a few hours to 24 hours. Nausea and vomiting most often occur together, although they can occur alone. Cases of acute nausea and vomiting are often from gastrointestinal viruses such as norovirus, rotavirus and influenza. Less often it can be caused by toxins released from food that ? g oes bad? as well as some types of bacteria and parasites. Diarrhea can also occur. Your nurse practitioner will conduct a careful history to help determine if you have one of the more serious causes. The cause of your nausea and vomiting may be unknown. INSTRUCTIONS Medicines: 1) Anti-nausea: You may have been given a prescription for an anti nausea medicine such as Zofran, Phenergan or Compazine. These can be used every 6-8 hours to help prevent nausea and vomiting. They can make you sleepy, so do not drive after taking them. Be sure to read all of the drug information from the pharmacy. 2) Tylenol: Low grade fever is common with acute nausea and vomiting. You may use Tylenol, per the recommended dosing on the label, to help control fever. If you have liver disease, do not use Tylenol. Ask your QUALITY ASSURANCE SPECIALIST how to address fever if you are concerned about Tylenol use. 3) Anti-diarrheal medicines: These are available [id number], but in some cases are not recommended and can even worsen some cases of intestinal problems. Ask your QUALITY ASSURANCE SPECIALIST if you should use them. In children under 12, the only anti-diarrheal that should be considered is Kaopectate. Diet: 1) For the next 12-24 hours, take clear liquids only. No dairy and no caffeinated beverages. After you have not vomited for a complete hour (either with or without the help of the anti-nausea medicine), begin by taking one tablespoon of clear liquid every 15 minutes for one hour. If you are able to tolerate this, you may increase the amount to 2 tablespoons every hour for the next 2 hours. 2) Clear liquids such as gatorade, pedialyte or broth are recommended because of the electrolytes and sugars that will help replenish the losses from vomiting and diarrhea. 3) If you are able to tolerate clear liquids as instructed above, you may begin to take a bland diet. Plain pasta/noodles or toast are suggestions. If you have had diarrhea, bananas, rice and applesauce are suggested as these can help make the stools more solid. Avoid greasy, fatty or fried foods FOLLOW UP You should make an appointment to see your primary care provider within 24 hours or sooner for worsening condition as described below. If you do not have a primary care doctor, you should follow up with one of the PCP suggestions from [facility]. SEEK CARE IMMEDIATELY IF: 1) You are still unable to tolerate any oral intake after 24 hours 2) You have blood in your vomit or stool 3) You develop severe abdominal pain that does not go away after an episode of vomiting or diarrhea 4) You have severe dizziness, heart palpitations or are passing out 5) You develop severe muscle cramps or weakness 6) You have not made urine in over 24 hours If you develop any new or worsening symptoms and need after hours care, please go to nearest ER and/or call 911. If you have additional concerns or develop a change in your condition between 8am-10pm, please call [facility] at [phone] to help navigate your care. [email or web address] Not available 01/07/2020 18:08:15 09/25/2020 [id number] Acute Nausea and Vomiting BASIC INFORMATION Acute nausea and vomiting often start suddenly, worsen quickly, and last a few hours to 24 hours. Nausea and vomiting most often occur together, although they can occur alone. Cases of acute nausea and vomiting are often from gastrointestinal viruses such as norovirus, rotavirus and influenza. Less often it can be caused by toxins released from food that ? g oes bad? as well as some types of bacteria and parasites. Diarrhea can also occur. Your nurse practitioner will conduct a careful history to help determine if you have one of the more serious causes. The cause of your nausea and vomiting may be unknown. INSTRUCTIONS Medicines: 1) Anti-nausea: You may have been given a prescription for an anti nausea medicine such as Zofran, Phenergan or Compazine. These can be used every 6-8 hours to help prevent nausea and vomiting. They can make you sleepy, so do not drive after taking them. Be sure to read all of the drug information from the pharmacy. 2) Tylenol: Low grade fever is common with acute nausea and vomiting. You may use Tylenol, per the recommended dosing on the label, to help control fever. If you have liver disease, do not use Tylenol. Ask your QUALITY ASSURANCE SPECIALIST how to address fever if you are concerned about Tylenol use. 3) Anti-diarrheal medicines: These are available [id number], but in some cases are not recommended and can even worsen some cases of intestinal problems. Ask your QUALITY ASSURANCE SPECIALIST if you should use them. In children under 12, the only anti-diarrheal that should be considered is Kaopectate. Diet: 1) For the next 12-24 hours, take clear liquids only. No dairy and no caffeinated beverages. After you have not vomited for a complete hour (either with or without the help of the anti-nausea medicine), begin by taking one tablespoon of clear liquid every 15 minutes for one hour. If you are able to tolerate this, you may increase the amount to 2 tablespoons every hour for the next 2 hours. 2) Clear liquids such as gatorade, pedialyte or broth are recommended because of the electrolytes and sugars that will help replenish the losses from vomiting and diarrhea. 3) If you are able to tolerate clear liquids as instructed above, you may begin to take a bland diet. Plain pasta/noodles or toast are suggestions. If you have had diarrhea, bananas, rice and applesauce are suggested as these can help make the stools more solid. Avoid greasy, fatty or fried foods FOLLOW UP You should make an appointment to see your primary care provider within 24 hours or sooner for worsening condition as described below. If you do not have a primary care doctor, you should follow up with one of the PCP suggestions from [facility]. SEEK CARE IMMEDIATELY IF: 1) You are still unable to tolerate any oral intake after 24 hours 2) You have blood in your vomit or stool 3) You develop severe abdominal pain that does not go away after an episode of vomiting or diarrhea 4) You have severe dizziness, heart palpitations or are passing out 5) You develop severe muscle cramps or weakness 6) You have not made urine in over 24 hours If you develop any new or worsening symptoms and need after hours care, please go to nearest ER and/or call 911. If you have additional concerns or develop a change in your condition between 8am-10pm, please call [facility] at [phone] to help navigate your care. [email or web address] Not available 09/25/2020 11:10:57 01/27/2021 [id number] Acute Nausea and Vomiting/Diarrhea BASIC INFORMATION Acute nausea and vomiting often start suddenly, worsen quickly, and last a few hours to 24 hours. Nausea and vomiting most often occur together, although they can occur alone. Cases of acute nausea and vomiting are often from gastrointestinal viruses such as norovirus, rotavirus and influenza. Less often it can be caused by toxins released from food that ? g oes bad? as well as some types of bacteria and parasites. Diarrhea can also occur. Your nurse practitioner will conduct a careful history to help determine if you have one of the more serious causes. The cause of your nausea and vomiting may be unknown. INSTRUCTIONS Medicines: 1) Anti-nausea: You may have been given a prescription for an anti nausea medicine such as Zofran, Phenergan or Compazine. These can be used every 6-8 hours to help prevent nausea and vomiting. They can make you sleepy, so do not drive after taking them. Be sure to read all of the drug information from the pharmacy. 2) Tylenol: Low grade fever is common with acute nausea and vomiting. You may use Tylenol, per the recommended dosing on the label, to help control fever. If you have liver disease, do not use Tylenol. Ask your QUALITY ASSURANCE SPECIALIST how to address fever if you are concerned about Tylenol use. 3) Anti-diarrheal medicines: These are available [id number], but in some cases are not recommended and can even worsen some cases of intestinal problems. Ask your QUALITY ASSURANCE SPECIALIST if you should use them. In children under 12, the only anti-diarrheal that should be considered is Kaopectate. Diet: 1) For the next 12-24 hours, take clear liquids only. No dairy and no caffeinated beverages. After you have not vomited for a complete hour (either with or without the help of the anti-nausea medicine), begin by taking one tablespoon of clear liquid every 15 minutes for one hour. If you are able to tolerate this, you may increase the amount to 2 tablespoons every hour for the next 2 hours. 2) Clear liquids such as gatorade, pedialyte or broth are recommended because of the electrolytes and sugars that will help replenish the losses from vomiting and diarrhea. 3) If you are able to tolerate clear liquids as instructed above, you may begin to take a bland diet. Plain pasta/noodles or toast are suggestions. If you have had diarrhea, bananas, rice and applesauce are suggested as these can help make the stools more solid. Avoid greasy, fatty or fried foods FOLLOW UP You should make an appointment to see your primary care provider within 24 hours or sooner for worsening condition as described below. If you do not have a primary care doctor, you should follow up with one of the [facility]CP suggestions [facility]. SEEK CARE IMMEDIATELY IF: 1) You are still unable to tolerate any oral intake after 24 hours 2) You have blood in your vomit or stool 3) You develop severe abdominal pain that does not go away after an episode of vomiting or diarrhea 4) You have severe dizziness, heart palpitations or are passing out 5) You develop severe muscle cramps or weakness 6) You have not made urine in over 24 hours If you develop any new or worsening symptoms and need after hours care, please go to nearest ER and/or call 911. If you have additional concerns or develop a change in your condition between 8am-10pm, please call [facility] at [phone] to help navigate your care. [email or web address] Not available 01/27/2021 17:50:09 Reason for Referral None Reported. Results Created Date Observation Date Name Description Value Unit Range Abnormal Flag Note LastModifiedBy Organization Detail LastModifiedTime 12/07/1912/07/2019 BMP + ioniz ed calci um, serum or plasm a glu 84 mg/dL 70-105 Not Available [facility] [address] [place], [address], 12/11/2019 10:40:46 12/07/1912/07/2019 BMP + ioniz ed calci um, serum or plasm a BUN 9 mg/dL 8-26 Not Available [facility] [address] [place], [address], 12/11/2019 10:40:46 12/07/1912/07/2019 BMP + ioniz ed calci um, serum or plasm a crea 0.6 mg/dL 0.6-1. 3 Not Available [facility] [address] [place], [address], 12/11/2019 10:40:46 12/07/1912/07/2019 BMP + ioniz ed calci um, serum or plasm a Na 140 mmol/ L 138-14 6 Not Available [address], [address], 12/11/2019 10:40:46 12/07/1912/07/2019 BMP + ioniz ed calci um, serum or plasm a K 3.6 mmol/ L 3.5-4. 9 Not Available [address], [address], 12/11/2019 10:40:46 12/07/1912/07/2019 BMP + ioniz ed calci um, serum or plasm a cL 105 mmol/ L 98-109 Not Available [address], [address], 12/11/2019 10:40:46 12/07/1912/07/2019 BMP + ioniz ed calci um, serum or plasm a TCO2 24 mmol/ L 24-29 Not Available [address], [address], 12/11/2019 10:40:46 12/07/1912/07/2019 BMP + ioniz ed calci um, serum or plasm a angap 15 mmol/ L 10-20 Not Available [address], [address], 12/11/2019 10:40:46 12/07/1912/07/2019 BMP + ioniz ed calci um, serum or plasm a ica 1.19 mmol/ L 1.12-1 .32 Not Available [address], [address], 12/11/2019 10:40:46 12/07/1912/07/2019 BMP + ioniz ed calci um, serum or plasm a HCT 35 %pcv 38-51 Not Available [facility], [address], 12/11/2019 10:40:46 12/07/1912/07/2019 BMP + ioniz ed calci um, serum or plasm a Hb 11.9 g/dL 12-17 Not Available [address], [address], 12/11/2019 10:40:46 01/01/20 20 01/01/2020 BMP + ioniz ed calci um, serum or plasm a glu 165 mg/dL 70-105 Not Available [address], [address], 01/01/2020 13:45:25 01/01/2001/01/2020 BMP + ioniz ed calci um, serum or plasm a BUN 10 mg/dL 8-26 Not Available [address], [address], 01/01/2020 13:45:25 01/01/2001/01/2020 BMP + ioniz ed calci um, serum or plasm a crea 0.4 mg/dL 0.6-1. 3 Not Available [address], [address], 01/01/2020 13:45:25 01/01/20 20 01/01/2020 BMP + ioniz ed calci um, serum or plasm a Na 136 mmol/ L 138-14 6 Not Available [address], [address], 01/01/2020 13:45:25 01/01/20 20 01/01/2020 BMP + ioniz ed calci um, serum or plasm a K 3.3 mmol/ L 3.5-4. 9 Not Available [address], [address], 01/01/2020 13:45:25 01/01/20 20 01/01/2020 BMP + ioniz ed calci um, serum or plasm a cL 104 mmol/ L 98-109 Not Available [address], [address], 01/01/2020 13:45:25 01/01/20 20 01/01/2020 BMP + ioniz ed calci um, serum or plasm a TCO2 22 mmol/ L 24-29 Not Available [address], [address], 01/01/2020 13:45:25 01/01/20 20 01/01/2020 BMP + ioniz ed calci um, serum or plasm a angap 15 mmol/ L 10-20 Not Available [address], [address], 01/01/2020 13:45:25 01/01/20 20 01/01/2020 BMP + ioniz ed calci um, serum or plasm a ica 1.17 mmol/ L 1.12-1 .32 Not Available [address], [address], 01/01/2020 13:45:25 01/01/20 20 01/01/2020 BMP + ioniz ed calci um, serum or plasm a HCT 38 %pcv 38-51 Not Available [address], [address], 01/01/2020 13:45:25 01/01/20 20 01/01/2020 BMP + ioniz ed calci um, serum or plasm a Hb 12.9 g/dL 12-17 Not Available [address], [address], 01/01/2020 13:45:25 01/07/20 20 01/07/2020 BMP + ioniz ed calci um, serum or plasm a glu 84 mg/dL 70-105 Not Available [address], [address], 01/07/2020 17:59:37 01/07/20 20 01/07/2020 BMP + ioniz ed calci um, serum or plasm a BUN 10 mg/dL 8-26 Not Available [address], [address], 01/07/2020 17:59:37 01/07/20 20 01/07/2020 BMP + ioniz ed calci um, serum or plasm a crea 0.6 mg/dL 0.6-1. 3 Not Available [address], [address], 01/07/2020 17:59:37 01/07/20 20 01/07/2020 BMP + ioniz ed calci um, serum or plasm a Na 138 mmol/ L 138-14 6 Not Available [address], [address], 01/07/2020 17:59:37 01/07/20 20 01/07/2020 BMP + ioniz ed calci um, serum or plasm a K 3.5 mmol/ L 3.5-4. 9 Not Available [address], [address], 01/07/2020 17:59:37 01/07/20 20 01/07/2020 BMP + ioniz ed calci um, serum or plasm a cL 103 mmol/ L 98-109 Not Available [address], [address], 01/07/2020 17:59:37 01/07/20 20 01/07/2020 BMP + ioniz ed calci um, serum or plasm a TCO2 29 mmol/ L 24-29 Not Available [address], [address], 01/07/2020 17:59:37 01/07/20 20 01/07/2020 BMP + ioniz ed calci um, serum or plasm a angap 11 mmol/ L 10-20 Not Available [facility] [address] [place], [address], 01/07/2020 17:59:37 01/07/20 20 01/07/2020 BMP + ioniz ed calci um, serum or plasm a ica 1.34 mmol/ L 1.12-1 .32 Not Available [facility] [address] [place], [address], 01/07/2020 17:59:37 01/07/20 20 01/07/2020 BMP + ioniz ed calci um, serum or plasm a HCT 34 %pcv 38-51 Not Available [facility] [address] [place], [address], 01/07/2020 17:59:37 01/07/20 20 01/07/2020 BMP + ioniz ed calci um, serum or plasm a Hb 11.6 g/dL 12-17 Not Available [facility] [place] [address] [place], [address], 01/07/2020 17:59:37 12/08/19 20 12/08/2019 XR, abdom en, 3 or more views XRAY ABDOME N 1 VIEW FINDIN GS: The bowel gas patter n is normal withou t obstru ction or free air. No renal stone is seen. No mass is visibl e. There is modest amount of stool in colon and rectum . CONCLU TEO: Unrema rkable bowel gas patter n with modest stool. ELECTR ONICAL LY SIGNED BY PAIGE ALCANTAR M.D. 2019 10:05: 41 AM EDT. XRAY ABDOME N 1 VIEW Result s: The bowel gas patter n is normal withou t obstru ction or free air. No renal stone is seen. No mass is visibl e. There is modest amount of stool in colon and rectum . Conclu teo: Unrema rkable bowel gas patter n with modest stool. Electr onical ly signed by PAIGE ALCANTAR M.D. 2019 10:05: 41 AM EDT. [email or web address] [facility] ([facility] [address], [place], [address], 12/19/2019 13:24:01 Result Notes None recorded. Procedures Surgical History Date Name Laterality Status Provider Name and Address Organization Details Recorded Time 09/26/19 Medication Review completed Karina Suárez NP [address] [place], [address], [place] [facility] 09/25/2020 10:44:32 09/26/19 IV Start Procedure - completed Karina Suárez NP [address] [place], [address], [place] [facility] 09/25/2020 11:42:27 01/07/20 20 Venipuncture - completed Aurelia Rubio NP [address] [place], [address], [place] [facility] 01/07/2020 18:01:09 01/07/20 IV Start Procedure - completed Aurelia Rubio NP [address] [place], [address], [place] [facility] 01/07/2020 18:00:42 01/01/20 20 IV Start Procedure - completed Karina Suárez NP [address] [place], [address], [place] [facility] 01/01/2020 14:39:49 12/07/19 20 IV Start Procedure - completed MONICA MOREL NP [address] [place], [address], [place] [facility] 12/07/2019 14:01:44 02/21/20 19 IV Start Procedure - completed JORDY GABRIEL [address] [place], [address], [place] [facility] 02/20/2019 11:43:53 Appendectomy completed Karina Suárez NP [address] [place], [address], [place] [facility] 01/01/2020 13:51:05 placement of gastrostomy tube completed Karina Suárez NP [address], [place], [address], [place] [facility] 01/01/2020 13:51:44 Imaging Results Imaging Date Name Status LastModified by Organiz ation Details LastModified Time 12/08/2019 XR, abdomen, 3 or more views completed [email or web address] [facility] [address] , [place], [address], 12/19/2019 13:24:01 Procedure Notes None recorded. Medical Equipment None Reported. Allergies Allergen ID Allergen Name Allergen Category Reaction Reaction Severity Criticality Documentation Date Start Date Code Code System Note Provider Name and Address Organization Details Recorded Time 58521 Substance with sulfonami de structure and antibacte rial mechanism of action (substanc e) medicatio n Not available Not available Not available 02/20/2019 79485 8003 SNOMED [place] GABRIEL [address] [place], [address], [place] [facility] 9 09:14:38 [address]706 Toradol medicatio n Not available Not available Not available 02/20/2019 43820 RxNorm [place] GABRIEL [address] [place], [address], [place] [facility] 9 09:14:45 50131 morphine medicatio n Not available Not available Not available 02/20/2019 7052 RxNorm [place] GABRIEL [address] [place], [address], [place] [facility] 9 09:14:54 94724 oxycodone medicatio n Not available Not available Not available 02/20/2019 7804 RxNorm [place] GABRIEL [address] [place], [address], [place] [facility] 9 09:15:04 88573 acetamino phen / oxycodone medicatio n Not available Not available Not available 02/20/2019 60513 3 RxNorm [place] GABRIEL [address] [facility], [address] [facility] 9 09:15:15 Medications Name Sig Start Date Stop Date Status Note LastModified by Organization Details LastModified Time senna tablets TAKE 2 TABLETS BY MOUTH ONCE A DAY active Not Available Not Available No t Available vitamin b-2 100mg tablets TK 3 TS PO BID 09/25 completed Not Available Not Available Not Available fluconazole 100 mg tablet 02/20 completed Not Available Not Available Not Available Vitamin B-2 100 mg tablet TAKE 2 TABLETS BY MOUTH FOUR TIMES DAILY active Not Available Not Available No t Available prednisone 10 mg tablet 09/25 completed Not Available Not Available Not Available doxycycline hyclate 100 mg capsule TAKE 1 CAPSULE BY MOUTH TWICE DAILY FOR 7 DAYS DIRECTED 09/25 completed Not Available Not Available Not Available albuterol sulfate 2.5 mg/3 mL (0.083 %) solution for nebulizatio n VVN Q 4 TO 6 H PRN FOR COUGH OR WHEEZE active Not Available Not Available No t Available cetirizine 10 mg tablet TAKE 1 TABLET BY MOUTH TWICE DAILY active Not Available Not Available No t Available amitriptyli ne 150 mg tablet 12/06 completed Not Available Not Available Not Available azithromyci n 250 mg tablet 12/06 completed Not Available Not Available Not Available fluconazole 150 mg tablet TAKE 1 TABLET BY MOUTH ONCE AND MAY REPEAT IN 72 HOURS IF NEEDED 09/25 completed Not Available Not Available Not Available senna 8.6 mg tablet TAKE 2 TABLETS BY MOUTH ONCE A DAY 09/25 completed Not Available Not Available Not Available epinephrine (Jr) 0.15 mg/0.3 mL injection,a uto-injecto r INJECT INTRAMUSC ULARLY NEEDED FOR ALLERGIC REACTION. active Not Available Not Available No t Available phenazopyri dine 200 mg tablet TAKE 1 TABLET BY MOUTH THREE TIMES DAILY FOR 2 DAYS DIRECTED 09/25 completed Not Available Not Available Not Available ondansetron HCl 4 mg tablet TAKE 1 TABLET BY MOUTH EVERY 6 HOURS FOR 5 DAYS NEEDED active Not Available Not Available No t Available prednisone 20 mg tablet TAKE 2 TABLETS BY MOUTH EVERY DAY FOR 5 DAYS DIRECTED 09/25 completed Not Available Not Available Not Available doxepin 75 mg capsule 09/25 completed Not Available Not Available Not Available sumatriptan 50 mg tablet 02/20 completed Not Available Not Available Not Available diphenoxyla te-atropine 2.5 mg-0.025 mg tablet 02/20 completed Not Available Not Available Not Available melatonin 3 mg tablet active Not Available Not Available No t Available levocarniti ne 330 mg tablet TAKE 1 TABLET BY MOUTH TWICE DAILY 09/25 completed Not Available Not Available Not Available ciprofloxac in 500 mg tablet TAKE 1 TABLET BY MOUTH EVERY 12 HOURS FOR 3 DAYS DIRECTED 09/25 completed Not Available Not Available Not Available sulfamethox azole 800 mg-trimetho prim 160 mg tablet 02/20 completed Not Available Not Available Not Available acetaminoph en 500 mg tablet TAKE 2 TABLETS BY MOUTH EVERY 8 HOURS NEEDED FOR PAIN active Not Available Not Available No t Available butalbital- acetaminoph en-caffeine 50 mg-325 mg-40 mg tablet 09/25 completed Not Available Not Available Not Available baclofen 20 mg tablet TAKE 1 TABLET BY MOUTH EVERY 8 HOURS 09/25 completed Not Available Not Available Not Available adapalene 0.1 % topical cream APPLY A SMALL AMOUNT EVERY NIGHT AT BEDTIME active Not Available Not Available No t Available prazosin 5 mg capsule 12/06 completed Not Available Not Available Not Available hydromorpho ne 2 mg tablet TAKE 1 TABLET BY MOUTH TWICE DAILY FOR 10 DAYS NEEDED 09/25 completed Not Available Not Available Not Available famotidine 20 mg tablet TAKE 1 TABLET BY MOUTH TWICE DAILY active Not Available Not Available No t Available prednisolon e acetate 1 % eye drops,suspe nsion 02/20 completed Not Available Not Available Not Available magnesium oxide 400 mg (241.3 mg magnesium) tablet TAKE 1 TABLET BY MOUTH EVERY NIGHT AT BEDTIME 09/25 completed Not Available Not Available Not Available methocarbam ol 750 mg tablet TK 1 T PO QID 09/25 completed Not Available Not Available Not Available clindamycin 1 % topical gel APPLY TO THE AFFECTED AREA EVERY DAY 09/25 completed Not Available Not Available Not Available aspirin 325 mg tablet,freedom yed release TAKE 1 TABLET BY MOUTH DAILY. START THE DAY AFTER SURGERY 09/25 completed Not Available Not Available Not Available trazodone 100 mg tablet 09/25 completed Not Available Not Available Not Available levothyroxi ne 50 mcg tablet TAKE ONE TABLET BY MOUTH EVERY DAY DIRECTED FOR 90 DAYS active Not Available Not Available No t Available pantoprazol e 40 mg tablet,freedom yed release TAKE 1 TABLET BY MOUTH TWICE DAILY active Not Available Not Available No t Available erythromyci n 5 mg/gram (0.5 %) eye ointment 09/25 completed Not Available Not Available Not Available tacrolimus 0.1 % topical ointment 02/20 completed Not Available Not Available Not Available oseltamivir 75 mg capsule 02/20 completed Not Available Not Available Not Available clotrimazol e-betametha sone 1 %-0.05 % topical cream APPLY TOPICALLY TO THE AFFECTED AND SURROUNDI NG AREAS TWICE DAILY IN THE MORNING AND IN THE EVENING FOR 2 WEEKS 09/25 completed Not Available Not Available Not Available olopatadine 0.1 % eye drops 02/20 completed Not Available Not Available Not Available pyridostigm ine bromide 60 mg tablet active Not Available Not Available Not Available mometasone 50 mcg/actuati on nasal spray 02/20 completed Not Available Not Available Not Available budesonide 0.5 mg/2 mL suspension for nebulizatio n active Not Available Not Available Not Available diclofenac sodium 75 mg tablet,freedom yed release 02/20 completed Not Available Not Available Not Available montelukast 10 mg tablet TAKE 1 TABLET BY MOUTH AT BEDTIME active Not Available Not Available No t Available sodium chloride 0.9 % intravenous solution 500 mL administe red on scene. Time administe red: 11:22 2020 active Not Available Not Available Not Avai lable ibuprofen 600 mg tablet TAKE 1 TABLET BY MOUTH THREE TIMES DAILY 09/25 completed Not Available Not Available Not Available polyethylen e glycol 3350 17 gram/dose oral powder DISSOLVE 17 GRAMS INTO 8 OUNCE WATER AND DRINK PO D 09/25 completed Not Available Not Available Not Available levofloxaci n 500 mg tablet 02/20 completed Not Available Not Available Not Available zolpidem 10 mg tablet 12/06 completed Not Available Not Available Not Available ondansetron 4 mg disintegrat ing tablet DISSOLVE 1 TABLET UNDER THE TONGUE EVERY 8 HOURS NEEDED active Not Available Not Available No t Available Zofran 2 mg/mL intravenous solution 4 mg IV administe red on scene. Time administe red: 2020 active Not Available Not Available Not Avai lable fluticasone propionate 50 mcg/actuati on nasal spray,suspe nsion 02/20 completed Not Available Not Available Not Available clotrimazol e 1 % topical cream 02/20 completed Not Available Not Available Not Available medroxyprog esterone 150 mg/mL intramuscul ar suspension 02/20 completed Not Available Not Available Not Available cholecalcif kaz (vitamin D3) 125 mcg (5,000 unit) capsule active Not Available Not Available Not Available doxycycline hyclate 100 mg tablet TK 1 T PO BID FOR 10 DAYS 12/31 completed Not Available Not Available Not Available loratadine 10 mg tablet TAKE 1 TABLET BY MOUTH EVERY DAY 09/25 completed Not Available Not Available Not Available prazosin 2 mg capsule 12/06 completed Not Available Not Available Not Available naproxen 500 mg tablet TK 1 T PO BID 09/25 completed Not Available Not Available Not Available doxepin 150 mg capsule 12/06 completed Not Available Not Available Not Available mometasone 0.1 % topical cream 02/20 completed Not Available Not Available Not Available amoxicillin 875 mg-potassiu m clavulanate 125 mg tablet TAKE 1 TABLET BY MOUTH TWICE DAILY FOR 10 DAYS active Not Available Not Available No t Available Ventolin HFA 90 mcg/actuati on aerosol inhaler INHALE 2 PUFFS BY MOUTH EVERY 6 HOURS NEEDED FOR SHORTNESS OF BREATH/ WHEEZING active Not Available Not Available No t Available clindamycin phosphate 1 % topical solution ANUM TO NAIL BID active Not Available Not Available No t Available azithromyci n 500 mg tablet TAKE 1 TABLET BY MOUTH DAILY FOR 3 DAYS active Not Available Not Available No t Available bupropion HCl XL 300 mg 24 hr tablet, extended release active Not Available Not Available Not Available nitrofurant oin monohydrate /macrocryst als 100 mg capsule TAKE 1 CAPSULE BY MOUTH TWICE DAILY WITH FOOD FOR 7 DAYS active Not Available Not Available No t Available fluocinolon e 0.01 % scalp oil and shower cap 12/06 completed Not Available Not Available Not Available baclofen 02/20 completed Not Available Not Available Not Available trazodone 02/20 completed Not Available Not Available Not Available pantoprazol e 02/20 completed Not Available Not Available Not Available Wellbutrin XL 02/20 completed Not Available Not Available Not Available Symbicort 160 mcg-4.5 mcg/actuati on HFA aerosol inhaler INHALE 2 PUFFS BY MOUTH TWICE DAILY active Not Available Not Available No t Available DOK 100 mg tablet TAKE 1 TABLET BY MOUTH TWICE DAILY FOR 30 DAYS 09/25 completed Not Available Not Available Not Available tranexamic acid 650 mg tablet TK 2 TS PO TID FOR 5 DAYS 12/31 completed Not Available Not Available Not Available Linzess 145 mcg capsule 02/20 completed Not Available Not Available Not Available Spiriva Respimat 2.5 mcg/actuati on solution for inhalation INHALE 2 PUFFS BY MOUTH DAILY active Not Available Not Available No t Available Trulance 3 mg tablet TAKE 1 TABLET BY MOUTH DAILY active Not Available Not Available No t Available Dupixent 300 mg/2 mL subcutaneou s syringe 12/06 completed Not Available Not Available Not Available Xolair 75 mg/0.5 mL subcutaneou s syringe 02/20 completed Not Available Not Available Not Available Xolair 150 mg/mL subcutaneou s syringe 02/20 completed Not Available Not Available Not Available Motegrity 1 mg tablet TAKE 1 TABLET BY MOUTH TWICE DAILY 09/25 completed Not Available Not Available Not Available Vitals Date Recorded Body temperature Heart rate Oxygen saturation Oxygen saturation in Arterial blood by Pulse oximetry Respiratory rate Systolic blood pressure Diastolic blood pressure Provider Name and Address Organization Details Last Updated DateTime 0 98.6 [degF] 108 /min 94 % 94 % 16 /min 120 mm[Hg] 80 mm[Hg] Not Available [facility] 0 13:40:54 Date Recorded Body temperature Respiratory rate Oxygen saturation Oxygen saturation in Arterial blood by Pulse oximetry Heart rate Systolic blood pressure Diastolic blood pressure Provider Name and Address Organization Details Last Updated DateTime 0 98.4 [degF] 16 /min 96 % 96 % 86 /min 110 mm[Hg] 64 mm[Hg] Not Available [facility] 0 13:17:08 Date Recorded Heart rate Respiratory rate Oxygen saturation Oxygen saturation in Arterial blood by Pulse oximetry Body temperature Systolic blood pressure Diastolic blood pressure Provider Name and Address Organization Details Last Updated DateTime 0 86 /min 16 /min 98 % 98 % 98.8 [degF] 100 mm[Hg] 68 mm[Hg] Not Available [facility] 0 17:30:24 Date Recorded Body temperature Oxygen saturation Oxygen saturation in Arterial blood by Pulse oximetry Respiratory rate Heart rate Systolic blood pressure Diastolic blood pressure Provider Name and Address Organization Details Last Updated DateTime 1 99.1 [degF] 98 % 98 % 18 /min 79 /min 128 mm[Hg] 84 mm[Hg] Not Available [facility] 1 11:06:30 Date Recorded Oxygen saturation Oxygen saturation in Arterial blood by Pulse oximetry Heart rate Body temperature Respiratory rate Systolic blood pressure Diastolic blood pressure Provider Name and Address Organization Details Last Updated DateTime 1 96 % 96 % 96 /min 100.4 [degF] 18 /min 130 mm[Hg] 78 mm[Hg] Not Available [facility] 1 17:54:24 Social History Question Answer Notes LastModified by Organizat ion Details LastModified Time Tobacco Smoking Status Never Smoker JORDY GABRIEL [address], [place], [address], [place] [facility] 02/20/2019 09:23:16 Do You Or Have You Ever Used E-cigarettes Or Vape? Never Used Electronic Cigarettes Information not available 02/20/2019 How Many Days In The Past Year Have You Had A Heavy Drinking Consumption (4+ Female, 5+ Male)? 0 Information not available 02/20/2019 Marital Status Single Informatio n not available 02/20/2019 What Was The Date Of Your Most Recent Tobacco Screening? 02/20/2019 31 Information not available 02/21/2019 Sex: Unknown Functional Status None recorded. Mental Status None recorded. Family History Nothing Reported. Medical History Condition Response Diabetes N Coronary Artery Disease N Cancer N Stroke N COPD N Depression N Asthma Y High Cholesterol N Pulmonary Embolism N Hypertension N Kidney Disease N Gynecological HistoryNo gynecological history recorded. Obstetrics History GPAL:G 0 P 0 0 0 0 Past Encounters Encounter ID Performer Location Encounter Start Date Encounter Closed Date Diagnosis/Indication Diagnosis SNOMED-CT Code Diagnosis ICD10 Code Diagnosis Note [id number] JORDY GABRIEL [facility] [address] [facility] [place] [address] 02/20/2019 09:12:40 02/21/2019 13:27:33 Acute vomiting 94223817 R11.10 Motility d isorder of intestine 169314946 K59.8 Mild dehydration 3606615 119 108 E86.0 [id number] Meredith Bridges [facility] [address] [facility] [place] [address] 12/07/2019 13:37:50 12/10/2019 22:49:34 Abdominal pain 46819968 R10.9 Mild dehydration 2479812 119 108 E86.0 [id number] Karina Suárez NP [facility] [address] [facility] [place] [address] 01/01/2020 13:14:03 01/04/2020 10:07:56 Abdominal pain 33775928 R10.9 [id number] Aurelia Rubio NP [facility] [address] [facility] [place] [address] 01/07/2020 17:27:05 01/12/2020 15:37:11 Acute vomiting 33732001 R11.10 Overview/H istory: patient is a 24 year old female with a history of mitochondr ial disease, autonomic dysfunctio n, intestine/ colon motility disorder and spasticity of lower extremitie s. She contacted today for cyclic vomiting since 0300 this am. She has been unable to keep down foods and only sips of occasional water. She is having upper abdominal discomfort that is muscular from repeated vomiting. She attempted Zofran 4 mg odt x 2 with no success and vomited up both doses. Exam: Patient vital signs stable. She does not appear to be in any distress and does not appear toxic.No lymphadeno cristy noted. HRR, s1, s1, no rub, gallop, murmur appreciate d. Her LSC to auscultati on bilaterall y. Her abdomen is soft, non-tender palpation. hypoactive bowel sounds noted. No vomiting noted this visit. No dry heaves noted this visit. No CVA tenderness . Musculoske letal exam findings wnl. Strength 5/5, reflexes wnl, pulses palpable. DDx considered , but not limited to:cyclic vomiting probable due to mitochondr ial diseasedeh ydration not likely patient BUN and creatinine wnl, skin turgor wnlSBO unlikely, + bowel sounds, patient reports normal bowel movements, no constipati on Work up/Results :Istat 8 Plan/Discu ssion:20G left AC IV placed, 500 cc NS bolus infused. Zofran 4 mg IV given this visit. Patient will follow up with primary care provider. No vomiting/d rolando andrade noted this visit. Patient reports that her nausea dissipated by end of visit. Proper Personal Protective Equipment (PPE), including {{gloves, eye protection , masks, and gowns, shoe covers jose ves, eye protection and masks glov es, eye protection gloves, eye protection , N95 mask, gown, and shoe covers surgical mask with face-shiel d, gloves, gown and shoe covers* morocho rgical mask with face-shiel d, gloves}} were donned and doffed nyla samuel and all equipment cleaned using approved technique with germicidal disposable wipes prior to and after care of this patient according to [facility] infection prevention protocols. In order to obtain further informatio n and compare any laboratory results/va lues, I have accessed {{old patient records* p atient records on the [employer] [facility] [employer] r eviewed records with the PCP}}. This informatio n was pertinent in my medical decision making today. Nausea and vomiting 1692 1999 R11.2 [id number] Karina Suárez NP [facility] [address] [facility] [place] [address] 09/25/2020 10:38:08 09/26/2020 19:17:29 Nausea and vomiting 70485875 R11.2 [id number] Z33.1 Mild dehydration 4098534 119 108 E86.0 [id number] JORDY Christian [facility] [address] [facility] [place] [address] 01/27/2021 17:49:21 01/31/2021 11:00:13 Acute vomiting [id number] R11.10 Health Concerns Section Related Observation LastModified by Organization Detai ls LastModified Time None Recorded Concern Status LastModified by Organization Details LastModified Time None Recorded Advance Directives Directive None Recorded Payers Encounter Date Sequence Insurance Name Policy Number Policy Ayoub Covered Member ID Ayoub Member ID Guarantor Name 12/07/2019 1 [place] [employer] Alza Slick [id number] Alza Slick 12/07/2019 2 [place] Alza Arevalo [id number] Alza Slick 01/01/2020 1 [place] [employer] Alza Slick [id number] Alza Slick 01/01/2020 2 [place] Alza Arevalo [id number] Alza Slick 01/07/2020 1 [place] [facility] Alza Slick [id number] Alza Slick 01/07/2020 2 [place] Alza Arevalo [id number] Alza Slick 09/25/2020 1 [place] [employer] Alza Slick [id number] Alza Slick 09/25/2020 2 [place] Alza Arevalo [id number] Alza Slick 01/27/2021 1 [place] Alza Slick [id number] Alza Slick Notes Date Note Type Note Provider Name and Address Organization Details Recorded Time 0 text/html Pt reports that d/t her mitochondial dz she has issues with her stomach which can result in n/v and abd pain and she can get easily dehydrated. She reports that this episode started about 4 days ago. Pt last vomited this morning. Pt states she has not been able to keep much in the way of food or fluid down over the last 4 days. Pt has had water since she last vomited and has kept that down so far. Pt's stomach doctor recommended that she call as he would like an abd xray. Pt reports LBM was 10 days ago. Pt has taken colace, miralax, multigerity and laxative chocolate without effect. Pt spoke with his stomach doctor this morning and advised that the patient needed and xray and fluids. Pt reports her abd feels distended and hard at this time. Reports pain as an 8/10. Pt has been using zofran to help with the nasuea with helps at times. LMP started on 12/05, pt reports normal cycle and denies any possiblity of . Reports sx are consistent with prior flares and has close follow up with GI. MONICA MOREL, MELVIN [address], [place], [address], [place] - [facility] 12/07/2019 14:32:27 0 text/html 24yo female who is known to [facility] but new to this provider with a PMHx of mitochondrial disease, autonomic dysfunction, intestine/colon motility disorder, spasticity of lower extremities, SBO and asthma. She is being seen today for abdominal pain, N/V that has been going on for the past 2 days. She reports she had a small hard BM on 12/29. She has only been able to drink a few sips of water today and yesterday had a small bowl of rice. She denies fever, chest pain or SOB. No rashes. She reports her urine has been concentrated however no dysuria. She reports her symptoms are consistent with her motility disorder and she usually feels better once she received IVF. Karina Suárez, MELVIN [address], [place], [address], [place] [facility] 01/01/2020 15:11:06 0 text/html Patient is a 24 year old alert female patient who is well known to [facility] and not known to this provider. Her chief complaint nausea and vomiting that started about 0300 this am. She attempted to take her prescribed Zofran x 2 without success. She has only been able to keep small sips of water down. Patient history significant for mitochondrial disease, autonomic dysfunction/ intestine/colon motility disorder, spasticity of LE. Aurelia Rubio, MELVIN [address], [place], [address], [place] [facility] 05/01/2020 09:10:04 1 text/html 25yo female who is known to [facility] provider with a PMHx of mitochondrial disease, autonomic dysfunction, intestine/colon motility disorder, spasticity of lower extremities, SBO, asthma and she is 14 weeks . She is being seen today for N/V that has been going on for the past 2 days since she ate bad food at [employer]. She denies fever, abdominal pain, chest pain or SOB. She reports her urine has been clear yellow, no dysuria. She has tolerated Gatorade and crackers the past 24hrs. She did notify her OB who called in Zofran and requested she received IVF. Karina Suárez NP [address], [place], [address], [place] [facility] 09/25/2020 12:00:18 1 text/html 25 yo female new to provider, known to DHnauseous and vomiting since yesterdaydiarrhea a few times yesterday but gone sincepassing gasno abd painhx of [id number] weeksfollow[facility] to high risk/mitochondrial diseasepregnancy going ok so farspoke to her Tar Leveler who suggested IV fluidshas zofran for existing stomach issuestried but vomited up - not an ODThas held down jenni lois, some gatorade, and some food in the past few hourslast vomitus was 3 hours agofrequency is slowing down from last night JORDY Christian [address], [place], [address], [place] [facility] 01/27/2021 18:21:21 OBGyn Episode No OBEpisode recorded.
--- OUTSIDE RECORDS SUMMARY | 2024-04-18 10:13 | XMS_ITS | Encounter Summary ---
Author Organization [facility] Address [address] [place] [address] Care Team Providers Care Water Treatment Plant Operator Name Role Phone Mateo Marquez MD Primary Care Provider Encounter Details Date Type Department Care Team (Late st Contact Info) Description 05/30/2014 Scanned Document [facility] [address] [address] External, Provider Social History Tobacco Use Types Packs/Day Years Used Date Smoking Tobacco: Never Assessed Comments Unknown Sex and Gender Information Value Date Recorded Sex Assigned at Not on file Legal Sex Female 1:02 PM EDT Gender Identity Not on file Sexual Orientation Not on file documented as of this encounter Plan of Treatment Not on file documented as of this encounter Procedures Procedure Name Priority Date/Time Associated Diagnosis Comments GENETICS SCAN Routine 05/30/2014 documented in this encounter Results * Genetics Scan (05/30/2014) us Provider External GENETIC TESTING Final Result [facility] [place], [place], [facility] documented in this encounter Visit Diagnoses Not on filedocumented in this encounter Care Teams Water Treatment Plant Operator Relationship Specialty Start Date End Date Mateo Marquez MD [address] [address] PCP - General Internal Medicine 05/29/14 documented as of this encounter
--- OUTSIDE RECORDS SUMMARY | 2024-04-18 10:13 | XMS_ITS | Clinical Summary ---
Author Organization [address] Address [address] [place] [address] Care Team Providers Care Reporting Developer Name Role Phone Mateo Marquez MD Primary Care Provider Allergies Active Allergy Reactions Criticality Noted Date Comments Oxycodone-Acetaminophen 09/19/2014 Sulfa (Sulfonamide Antibiotics) 08/23 Ketorolac 09/19/2014 Medications levOCARNitine (CARNITOR) 330 mg tablet Levocarnitine 330 mg tabs. Take 4 tabs in the morning, 4 tabs in the afternoon, and 3 tabs in the evening (total of 11 tabs daily) by mouth. 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 Migraine 10/08/2014 Gastrointestinal dysmotility 10/08/2014 Autonomic dysfunction 10/08/2014 Social History Tobacco Use Types Packs/Day Years Used Date Smoking Tobacco: Never Smokeless Tobacco: Never Alcohol Use Standard Drinks/Week Comments Not Asked 0 (1 standard drink = 0.6 oz pur e alcohol) Comments Unknown Sex and Gender Information Value Date Recorded Sex Assigned at Not on file Legal Sex Female 1:02 PM EDT Gender Identity Not on file Sexual Orientation Not on file Last Filed Vital Signs Vital Sign Reading Time Taken Comments Blood Pressure 128/70 03/13/2015 9:51 AM EST Pulse 96 03/13/2015 9:51 AM EST Temperature 36.2 ??C (97.2 ??F) 03/13/2015 9:51 AM ES T Respiratory Rate 20 09/19/2014 11:02 AM EDT Oxygen Saturation - - Inhaled Oxygen Concentration - - Weight 45 kg (99 lb 3.3 oz) 03/13/2015 9:[address] Height 154.5 cm (5' 0.83 ) 03/13/2015 9:51 AM ES T 54cm HC Body Mass Index 18.85 03/13/2015 9:51 AM EST Plan of Treatment Health Maintenance Due Date Last Done Comments HIV screening 08/25/2007 Hepatitis C screening 2012 Tetanus adult (Td q 10,TDAP once) 2014 Cervical cancer screening 08/25/2015 Influenza vaccine 09/23/2023 Covid-19 vaccine series ( - 2023-25 season) 2023 RSV Discussion (1 - 1-dose 7 5+ series) 2069 Meningococcal Vaccine Aged Out No susy gurinder eligible based on patient's age to complete this topic Pneumococcal Vaccine (2 - 49 years) Aged Out No longer eligible based on patient's age to complete this topic Insurance MEDICARE [id number] MEDICAID MEDICARE [id number] MEDICAID MEDICARE [id number] [place] [address] MEDICARE [id number] MEDICAID Care Teams Reporting Developer Relationship Specialty [place] [address] [place] [phone] PCP - General Internal Medicine 05/29/14
== END 2024-04-18 10:14 | disposition home or self-care (01) ==
PROVIDERS: PCP Internal Medicine; Visit Provider Hospitalist
DX: J40 Bronchitis, not specified as acute or chronic (principal); J30.9 Allergic rhinitis, unspecified; G70.9 Myoneural disorder, unspecified; J45.51 Severe persistent asthma with (acute) exacerbation
CPT/HCPCS: 99214

== ENCOUNTER → 2024-04-18 09:17 | Outpatient (BNVA) | payer MEDICARE, MEDICAID, SELFPAY | PROVIDERS: PCP Internal Medicine; Visit Provider Hospitalist | DX: J40 Bronchitis, not specified as acute or chronic (principal); J30.9 Allergic rhinitis, unspecified; J45.51 Severe persistent asthma with (acute) exacerbation; G70.9 Myoneural disorder, unspecified | CPT/HCPCS: 99212 ==